=== PATIENT | female | born 1955 | race Caucasian/White ===

== ENCOUNTER 2017-06-28 19:51 | Emergency (ER) | payer OTHER, SELFPAY ==
[2017-06-28 19:52] VITALS: BP 158/92; PULSE 108; RESP 20; TEMP 36.6; O2SAT 96; BMI 34.0
--- NOTE | 2017-06-28 20:40 | US_ITS ---
STUDY: ABDOMINAL ULTRASOUND - RIGHT UPPER QUADRANT REASON FOR VISIT: Female, 62 years old. Right upper quadrant pain TECHNIQUE: Ultrasound evaluation of the right upper quadrant was performed with real-time and static spear-scale imaging. TECHNICAL QUALITY: Limited. Examination limited by bowel gas. Also the patient was not fasting. COMPARISON: CT scan 06/01/2016. FINDINGS: Liver: The liver measures 13 cm. There is normal echogenicity of the liver. The bile ducts are within normal limits. There is hepatic color flow. The direction of portal flow is hepatopetal. Several liver cysts are seen measuring as much as 1.6 cm. Gallbladder: There is a contracted gallbladder. The gallbladder wall measures 3 mm. There is a negative sonographic Weston's sign. There is no pericholecystic fluid. There are no gallstones. Common Bile Duct (C.B.D.): The common bile duct measures 6.4 mm. Pancreas: Normal size of the head, body of the pancreas. Tail of the pancreas is suboptimally seen. There is normal echogenicity of the pancreas. There is no demonstrated pancreatic mass or cyst. Right Kidney: Normal size of the right kidney. The right kidney measures 10.1 cm. Normal renal cortex. The right cortex measures 1.0 cm. There is no demonstrated renal mass or cyst. There is no right hydronephrosis. US/Gallbladder IMPRESSION: Evaluation of the gallbladder is completely suboptimal because the patient was not fasting. Liver cysts incidentally noted. Electronically Signed: Bennett Harrison MD at 22:58 EDT , Service support ,
--- NOTE | 2017-06-28 21:12 | ED.RN ---
PATIENT REFUSED MORPHINE AND ZOFRAN SHE ISN'T IN THAT MUCH PAIN, AND DOESN'T HAVE NAUSEA.
[2017-06-28] MEDS: 0.9% Normal Saline 1,000 ML 250 ML IV (21:13)
[2017-06-28 21:29] LABS: Absolute Lymphocyte Count 2.49 X10^3/ul (0.83-4.51); Basophil# 0.02 X10^3/uL; Basophil% 0.3 % (0-1); Eosinophil# 0.18 X10^3/uL; Eosinophils% 2.5 % (0-5); Hematocrit 37.4 % (37-47); Hemoglobin 12.6 g/dl (12.0-15.0); Lymphocyte # 2.49 X10^3/ul (4.0); Lymphocyte % 35.2 % (19-41); Mean Corp Hgb Conc 33.7 g/gl (32-36); Mean Corpuscular Hgb 30.3 pg (27.0-32.0); Mean Corpuscular Volume 89.9 fL (81-99); Mean Platelet Vol. 9.6 fl (6.2-12.0); Monocyte# 0.41 X10^3/uL; Monocyte% 5.8 % (0-10); Neutrophil # 3.97 X10^3/uL (2.7-7.7); Neutrophil % 56.1 % (47-70); Platelet Count 296 K/mm3 (150-450); RBC Distribution Width CV 12.9 % (11.6-14.6); RBC Distribution Width SD 41.8 fl (35.1-43.9); Red Blood Count 4.16 M/mm3 (4.2-5.4); White Blood Count 7.1 K/mm3 (4.4-11.0)
[2017-06-28 21:31] LABS: AST(SGOT) 22 U/L (15-37); Alanine Aminotransfer ALT/SGPT 32 U/L (13-56); Albumin, Serum 3.5 g/dL (3.2-5.0); Alkaline Phosphatase 104 U/L (45-117); Bilirubin, Direct 0.05 mg/dL (0.00-0.30); Globulin 3.1 g/dL (2.2-4.2); Lipase 290 U/L (73-393); Protein, Total 6.6 g/dL (6.4-8.2)
[2017-06-28 21:40] LABS: POSITIVE COUNT NO; POSITIVE DIFFERENTIAL NO; POSITIVE MORPHOLOGY NO
[2017-06-28 22:14] VITALS: BP 141/79; PULSE 93; RESP 18; O2SAT 96
--- NOTE | 2017-06-28 23:12 | ED.VISSUMM ---
- ER Visit Summary Date of Service: 06/28/17 Chief Complaint: Right upper quadrant abdominal pain for approximately the past 3 days History of Present Illness: The patient is a 62 F who presents with right upper quadrant abdominal pain. There is a significant family history of cholelithiasis. She states the pain is worse when she sitting. She localizes the pain to the right upper quadrant. There is no radiation to the back. She does combine of nausea without vomiting or diarrhea. She denies constipation. She denies fever, chills night sweats. She denies cough, shortness of breath or difficulty breathing. She states she last ate at 1330. Please read written note for complete detail Physical Examination: As I entered the room patient was sitting a chair completely dressed reading a book. When she informed me that her pain is right upper quadrant right told her she would have to get into a gown. Her nurse helped her. Vital signs remarkable for blood pressure 158/92. Vital signs are otherwise unremarkable. HEENT exam is unremarkable. Lungs are clear to auscultation with good move air bilaterally. Heart is regular without murmur, gallop or rub. Abdomen is soft with tenderness in the right upper quadrant with guarding and positive clinical Weston sign. Bowel sounds are diminished. There is no CVA tenderness noted. There is no rash to suggest herpes varicella-zoster. The remainder of exam is unremarkable. Please read written note. Test Results: Ultrasound was suboptimal because patient told attack that she had cake. She admits that she omitted telling me this. Unfortunately I was not made aware of this and the ultrasound was done and is suboptimal. CBC, hepatic and lipase are unremarkable. Emergency Department Course and Treatment: Because patient has pain right upper quadrant with a clinical Weston sign and a significant family history cholelithiasis CBC, hepatic, lipase and ultrasound of the right upper quadrant was ordered. Treatment Plan: Follow-up with primary care physician for outpatient ultrasound since ultrasound performed today is suboptimal Disposition: Discharged to home Impression: Right upper quadrant pain of unknown etiology This note was generated with [employer] dictation software. It may contain incorrect words, spelling, and punctuation that were not noted in review of the chart prior to signing ED Disposition - Plan for ED Patient: Disposition: Home or Assisted Living Chief Complaint: Abd Pain Instructions: ED Abdominal Pain Unkn Cause, ED Abdominal Pain Gallstone Poss Referrals: Autumn Kothari MD [Primary Care Provider] - 3-5 Days
[2017-06-28 23:20] VITALS: BP 155/92; PULSE 95; O2SAT 97
[2017-06-28 23:22] VITALS: BP 155/92; PULSE 94; O2SAT 96
== END 2017-06-28 23:22 | disposition home or self-care (01) ==
PROVIDERS: Emergency Provider Emergency Medicine; Family Provider Family Medicine; PCP Family Medicine
DX: R10.11 Right upper quadrant pain (principal); R11.0 Nausea; Z87.891 Personal history of nicotine dependence
CPT/HCPCS: 76705; 80076; 83690; 85025; 96360; 99283; J2405

== ENCOUNTER → 2017-07-09 07:57 | Outpatient (CLI) | payer OTHER, SELFPAY ==
--- NOTE | 2017-07-09 08:02 | US_ITS ---
STUDY: ULTRASOUND TRANSVAGINAL CLINICAL: Female, 62 years old. Bloating x6 months, perimenopausal TECHNIQUE: Transvaginal COMPARISON: None FINDINGS: Normal uterine size measuring 4.6 x 6.4 x 4.6 cm. At least 3 uterine fibroids are noted containing calcification. The largest 3 measure 3.5 x 3.1 x 3.1 cm, 1.2 x 1.3 x 1.5 cm, and 1.6 x 1.5 x 1.4 cm. Normal endometrial thickness measuring 4 mm. There are no endometrial masses, and there is no fluid in the endometrial cavity. Normal uterine cervix. Normal right ovary, measuring 3.0 x 2.6 x 1.7 cm. There are multiple follicles without a dominant cyst. Normal left ovary, measuring 3.3 x 1.9 x 1.3 cm. There are multiple follicles without a dominant cyst. There is no free fluid in the pelvis. Polycystic ovary disease: No. US/Pelvic (Non ) IMPRESSION: Multiple uterine fibroids containing calcification. The ovaries appear normal. There is no fluid in the cul-de-sac. Electronically Signed: Louie Perez MD at 18:13 EDT , Service support ,
--- NOTE | 2017-07-09 08:02 | US_ITS ---
STUDY: ULTRASOUND TRANSVAGINAL CLINICAL: Female, 62 years old. Bloating x6 months, perimenopausal TECHNIQUE: Transvaginal COMPARISON: None FINDINGS: Normal uterine size measuring 4.6 x 6.4 x 4.6 cm. At least 3 uterine fibroids are noted containing calcification. The largest 3 measure 3.5 x 3.1 x 3.1 cm, 1.2 x 1.3 x 1.5 cm, and 1.6 x 1.5 x 1.4 cm. Normal endometrial thickness measuring 4 mm. There are no endometrial masses, and there is no fluid in the endometrial cavity. Normal uterine cervix. Normal right ovary, measuring 3.0 x 2.6 x 1.7 cm. There are multiple follicles without a dominant cyst. Normal left ovary, measuring 3.3 x 1.9 x 1.3 cm. There are multiple follicles without a dominant cyst. There is no free fluid in the pelvis. Polycystic ovary disease: No. US/Transvaginal Non- IMPRESSION: Multiple uterine fibroids containing calcification. The ovaries appear normal. There is no fluid in the cul-de-sac. Electronically Signed: Louie Perez MD at 18:13 EDT , Service support ,
== END ==
PROVIDERS: Family Provider Family Medicine; PCP Family Medicine; Visit Provider Obstetrics & Gynecology
DX: R14.0 Abdominal distension (gaseous) (principal)
CPT/HCPCS: 76830; 76856; 93976

== ENCOUNTER → 2017-11-19 08:08 | Outpatient (CLI) | payer OTHER, SELFPAY ==
[2017-11-19 08:48] LABS: Hematocrit 40.2 % (37-47); Hemoglobin 13.8 g/dl (12.0-15.0); Mean Corp Hgb Conc 34.3 g/gl (32-36); Mean Corpuscular Hgb 30.4 pg (27.0-32.0); Mean Corpuscular Volume 88.5 fL (81-99); Mean Platelet Vol. 9.8 fl (6.2-12.0); Platelet Count 316 K/mm3 (150-450); RBC Distribution Width CV 12.7 % (11.6-14.6); RBC Distribution Width SD 40.6 fl (35.1-43.9); Red Blood Count 4.54 M/mm3 (4.2-5.4); White Blood Count 6.4 K/mm3 (4.4-11.0)
[2017-11-19 08:51] LABS: Scan Indicated on CBC? Y/N NO
[2017-11-19 08:59] LABS: ALB/GLOB Ratio 1.1 RATIO (0.9-2.4); AST(SGOT) 23 U/L (15-37); Alanine Aminotransfer ALT/SGPT 34 U/L (13-56); Albumin, Serum 3.8 g/dL (3.2-5.0); Alkaline Phosphatase 127 U/L (45-117); Amylase 63 U/L (25-115); Anion Gap 10 (5-15); BUN 11 mg/dL (7-18); BUN/Creat Ratio 11.9 RATIO (10-20); Calcium,Total 9.2 mg/dL (8.5-10.1); Chloride 107 mmol/L (98-107); Creatinine, Serum 0.92 mg/dL (0.55-1.02); EST Glomerular Filtration Rate 65 mL/min (>60); Est Glom Filt Rate - Afr Amer 78 mL/min (>60); Globulin 3.5 g/dL (2.2-4.2); Glucose 101 mg/dL (74-106); Lipase 224 U/L (73-393); Potassium 3.8 mmol/L (3.5-5.1); Protein, Total 7.3 g/dL (6.4-8.2); Sodium Level 143 mmol/L (136-145)
== END ==
PROVIDERS: Family Provider Family Medicine; PCP Family Medicine; Visit Provider Family Medicine
DX: R14.0 Abdominal distension (gaseous) (principal)
CPT/HCPCS: 36415; 80053; 82150; 83690; 85027

== ENCOUNTER → 2018-01-14 08:30 | Outpatient (CLI) | payer OTHER, SELFPAY ==
--- NOTE | 2018-01-14 08:35 | BI_ITS ---
MAMMOGRAPHY - BILATERAL SCREENING REASON FOR EXAM: Female, 62 years old. Routine annual screening examination. PERTINENT HISTORY: Aunt with breast cancer. TECHNIQUE: Digital bilateral breast jose (3D mammographic acquisition) in the CC and MLO projections. 2-D mediolateral oblique (MLO) and craniocaudad (CC) views of both breasts were obtained. CAD: Full Field Digital Mammography with Computer Added Detection was performed. COMPARISON: Comparison is made with prior study dated December 31, 2016 and December 06, 2015. FINDINGS: Breast Composition: There are scattered areas of fibroglandular density. There are no dominant masses or suspicious calcifications. No other significant abnormalities are identified. There has been no significant change since the prior study. BI/SCREENING MAMM (CAD), BILAT IMPRESSION: Stable bilateral screening mammogram. Yearly follow-up mammogram recommended. (A) ASSESSMENT CATEGORY: BIRADS Category 1: Negative. A letter regarding these results will be sent to the patient by the facility within 30 days. Approximately 10% of breast cancers are not detected by mammography. A normal mammogram should not delay biopsy of a clinically suspicious abnormality. [id number] Electronically Signed: Cooper Thomas MD at 10:02 EDT Tel [phone], Service support ,
== END ==
PROVIDERS: Family Provider Family Medicine; PCP Family Medicine; Referring Provider Nurse Practitioner Women's Health; Visit Provider Nurse Practitioner Women's Health
DX: Z12.31 Encounter for screening mammogram for malignant neoplasm of breast (principal)
CPT/HCPCS: 77063; 77067

== ENCOUNTER → 2018-02-27 12:28 | Outpatient (CLI) | payer MEDICARE, BC, SELFPAY ==
[2018-02-25 07:55] VITALS: BMI 33.3
--- NOTE | 2018-02-27 12:29 | NM_ITS ---
CLINICAL: 67-year-old female with reported history of abdominal pain. RADIONUCLIDE HEPATOBILIARY SCINTIGRAPHY COMPARISON: Abdominal ultrasound report 06/28/2017 FINDINGS: Following the intravenous administration of 5.0 mCi of 99m Tc Mebrofenin, hepatobiliary images reveal: 1. Relatively prompt and homogeneous radiopharmaceutical concentration is noted by a normal sized liver. No parenchymal defects are identified. 2. Gallbladder activity is identified at 60 minutes post radiopharmaceutical administration. 3. Small intestinal tract is observed at 30 minutes following tracer injection. 4. Washout of the radiopharmaceutical by the hepatic parenchyma appears qualitatively normal. The patient was administered a fatty meal (8 ounces BOOST-30 grams fat). The post fatty meal consumption gallbladder ejection fraction calculated at 23 minutes was noted to be 61.0 % (normal greater than 30%). MO/Hepatobilliary Img w/Pharm Int IMPRESSION: 1. NORMAL 99m Tc Mebrofenin hepatobiliary imaging examination with fatty meal ingestion. A. A gallbladder ejection fraction calculated to be greater than 30% following the administration of a consumed fatty meal makes the probability of functional hepatobiliary disease (gallbladder and/or sphincter of Oddi dyskinesia) and/or organic hepatobiliary disease (chronic acalculous cholecystitis and/or cystic duct syndrome) to be low. (Chelo and Andrew, J Nucl Med 43: 1603, 2002). Electronically Signed: Charles Garber DO at 23:19 EST Tel , Service support ,
--- OUTSIDE RECORDS SUMMARY | 2018-04-15 07:05 | XMS RPT_ITS ---
:1955 Author Organization [place] Support Name Relationship Address Phone R Unavailable Unavailable Unavailable SANGEETA WILLIAMSON Unavailable [address] + [place] [address] R Unavailable Unavailable Unavailable SANGEETA WILLIAMSON Unavailable [address] + [place] [address] R Unavailable Unavailable Unavailable SANGEETA WILLIAMSON Unavailable [address] + [place] [address] R Unavailable Unavailable Unavailable SANGEETA WILLIAMSON Unavailable [address] + [place] [address] R Unavailable Unavailable Unavailable SANGEETA WILLIAMSON Unavailable [address] + [place] [address] SANGEETA WILLIAMSON Unavailable Unavailable + SANGEETA WILLIAMSON Unavailable Unavailable + R Unavailable Unavailable Unavailable SANGEETA WILLIAMSON Unavailable [address] + [place] [address] R Unavailable Unavailable Unavailable SANGEETA WILLIAMSON Unavailable [address] + [place] [address] SANGEETA WILLIAMSON Unavailable Unavailable + SANGEETA WILLIAMSON Unavailable Unavailable + R Unavailable Unavailable Unavailable SANGEETA WILLIAMSON Unavailable [address] + [place] [address] Care Team Providers Name Role Phone AUTUMN KOTHARI Attending Unavailable TAYE, AUTUMN Primary Care Unavailable MARIA ISABEL Munguia Attending Unavailable TAYE, AUTUMN Primary Care Unavailable Aj Serna Attending Unavailable Sarai Munguia Referring Unavailable Aj Serna Attending Unavailable Aj Serna Referring Unavailable Sarai Munguia Primary Care Unavailable Taye, Autumn Primary Care Unavailable Case Melissa Attending Unavailable May Frausto Attending Unavailable Taye, Autumn Primary Care Unavailable Sarai Munguia Attending Unavailable Sarai Munguia Referring Unavailable Sarai Munguia Primary Care Unavailable Edwin Sernael Attending Unavailable Ezra, Sarai Referring Unavailable Kenna Figueroa Attending Unavailable Henry, Kenna Referring Unavailable Munguia, Sarai Primary Care Unavailable Hershey, Molly Attending Unavailable Munguia, Sarai Referring Unavailable PROBLEMS PROBLEMS DATE TYPE CONDITION / CODE ATTENDING STATUS SOURCE 02/25/2018 Unknown R10.11 - Right Aj Serna Active [place] [facility] R10.11(ICD-10) Repository 02/25/2018 Unknown R14.0 - Abdominal Aj Serna Active [facility] R14.0(ICD-10) Repository PROCEDURES PROCEDURES No Procedure Records FoundRESULTS RESULTS SURGERY VISIT REPORT Observed: 03/03/2018 Status: F Source: [place] 7:54 AM [facility] REPOSITORY [facility] [address] [place] [address]. [address] [place] [address] OFFICE VISIT Date of Service: 03/03/18 MR#: [id number] Acct: [id number] Name: AYAH WILLIAMSON Rep #: [id number] : 1955 Provider: Aj Serna MD Age/Sex: 63/F Location: [facility] Status: Signed Intake Vital Signs03/03/18 Body Mass Index (BMI) 33.3 Intake Visit Reasons: hida results Student Activities Director Required: No Is patient in pain?: No Allergies Penicillins [PCN] Adverse Reaction (Verified 03/03/18 07:29) Hives Medications lactobacillus combination no.8 3 billion cell capsule 3,000 mmu cells PO DAILY 02/25/18 [History Confirmed 03/03/18] vitamin B complex tablet 1 tab PO DAILY 02/25/18 [History Confirmed 03/03/18] PFSH Medical History Hemorrhoids (Acute) Acid reflux (Acute) Constipation (Acute) Abdominal pain (Acute) Surgical History Hx of colonoscopy (Acute) Hx of tonsillectomy (Acute) Family History Aunt Breast cancer Aunt Ovarian cancer Mother Colon cancer Sister Ovarian cancer Social History Smoking Status: Never smoker alcohol intake: never substance use type: does not use caffeine: Yes frequency: does not exercise seatbelt use: always do you feel safe at home: Yes HPI HPI HPI: AYAH WILLIAMSON, is a 63 F who presents to the office today to review her most recent HIDA scan. Patient has had numerous ultrasounds of her gallbladder which have all been negative showing no pericholecystic fluid no stones and no gallbladder wall thickening. In addition, bile duct is always measured normal. She has had some liver function tests in the past 1 of them showing that the alkaline phosphatase was elevated but others showing it to be normal. She has a known history of constipation and she has had a colonoscopy in the past which has been negative. She has never had an upper endoscopy. Patient states last night she ate pizza at 5:00 she was later awoken later in the evening with right upper quadrant abdominal pain and bloating but just has not gotten better. This is a typical pattern for her when she eats or drinks align several hours after that she will develop right upper quadrant abdominal pain and bloating. This is been going on for better than a year. Over the last several months is gotten significantly worse. The patient has never had an upper endoscopy nor has she had a HIDA scan with ejection fraction. Her HIDA scan with ejection fraction showed a gallbladder ejection fraction to be 61% the test itself did not induce any abdominal pain whatsoever. Patient states that she has noted some slight improvement by trying to decrease the amount of food that she has been in taking it any one time. She has had no diarrhea. Exam Const General: well developed, no acute distress, well hydrated Orientation: oriented to person, oriented to place, oriented to time [facility] Head: normocephalic, atraumatic Ears: external ears normal Mouth: moist mucous membranes Eyes Sclera: sclerae normal Pupils: normal by confrontation Neck Neck: no lymphadenopathy noted Neck mass: No Thyroid: symmetrical, thyroid normal Chest Chest palpation AND inspection: normal inspection of the chest Resp Effort AND Inspection: normal respiratory effort Auscultation: clear to auscultation bilaterally Percussion: percussion normal Cardio Rate: regular rate Rhythm: regular rhythm GI Palpation: soft, no masses, no hepatosplenomegaly, nontender Rectal Exam: other Other: Rectal exam deferred. Extrem General: no clubbing, cyanosis or edema, normal to inspection Assessment AND Plan Problems 1. Abdominal bloating R14.0 2. Abdominal pain, RUQ R10.11 Plan I have discussed the above with the patient. I have offered the patient esophagogastroduodenoscopy for evaluation. I have explained the risks/benefits of the procedure and described the procedure. I have discussed the risks with the patient, including but not limited to: infection, bleeding, perforation of the GI tract requiring emergency surgery, inability to complete the procedure, injury to any internal organs, complications of anesthesia, etc. - the patient understands and agrees to proceed. I have answered all the patient's questions to the patient's satisfaction and the patient has no further questions. The patient has been given instructions for the colon cleansing preparation. We will do a biopsy for H. pylori as well as a biopsy of her small bowel. Coding Level of Care Code Off vis,est,level 3 Diagnoses Abdominal bloating R14.0 Abdominal pain, RUQ R10.11 03/03/18 0754 <Electronically signed by Aj Serna MD> Date Aj Serna MD Cosigner Signature: Date (if applicable) CC: PHARMACY DATA ANALYST-C Sarai Munguia HEPATOBILLIARY IMG Observed: 02/27/2018 Status: F Source: [place] W/PHARM INT 12:29 PM [facility] REPOSITORY [facility] Imaging Services [address] [place] [address] Hepatobilliary Img w/Pharm Int MR#: [id number] Acct: [id number] Name: AYAH WILLIAMSON Rep #: [id number] : 1955 F 63 From: Charles Garber DO PCP: JESSICA Bangura Status: REG CLI Study: Hepatobilliary Img w/Pharm Int Date of Exam: 02/27/18 Exam# [id number] Ordering Dr: Aj Serna MD CLINICAL: 67-year-old female with reported history of abdominal pain. RADIONUCLIDE HEPATOBILIARY SCINTIGRAPHY COMPARISON: Abdominal ultrasound report 06/28/2017 FINDINGS: Following the intravenous administration of 5.0 mCi of 99m Tc Mebrofenin, hepatobiliary images reveal: 1. Relatively prompt and homogeneous radiopharmaceutical concentration is noted by a normal sized liver. No parenchymal defects are identified. 2. Gallbladder activity is identified at 60 minutes post radiopharmaceutical administration. 3. Small intestinal tract is observed at 30 minutes following tracer injection. 4. Washout of the radiopharmaceutical by the hepatic parenchyma appears qualitatively normal. The patient was administered a fatty meal (8 ounces BOOST- 30 grams fat). The post fatty meal consumption gallbladder ejection fraction calculated at 23 minutes was noted to be 61.0 % (normal greater than 30%). NM/Hepatobilliary Img w/Pharm Int IMPRESSION: 1. NORMAL 99m Tc Mebrofenin hepatobiliary imaging examination with fatty meal ingestion. A. A gallbladder ejection fraction calculated to be greater than 30% following the administration of a consumed fatty meal makes the probability of functional hepatobiliary disease (gallbladder and/or sphincter of Oddi dyskinesia) and/or organic hepatobiliary disease (chronic acalculous cholecystitis and/or cystic duct syndrome) to be low. (Chelo and Andrew, J Nucl Med 43: 1603, 2002). Electronically Signed: Charles Garber DO at 23:19 EST Tel , Service support , CC: JESSICA Munguia; Aj Serna MD Rough Carpenter: Signed SURGERY VISIT REPORT Observed: 02/25/2018 Status: F Source: [facility] 8:25 AM [facility] REPOSITORY [facility] [address] [place] [address] [address] [place], [place] [address] OFFICE VISIT Date of Service: 02/25/18 MR#: [id number] Acct: [id number] Name: TERIAYAH Zoila Rep #: [id number] : 1955 Provider: Aj Serna MD Age/Sex: 63/F Location: [facility] Status: Signed Intake Vital Signs02/25/18 Body Mass Index (BMI) 33.3 02/25/18 Height 5 ft 3 in 02/25/18 Weight: 188 lb Intake Visit Reasons: Abdominal pain AND bloating Student Activities Director Required: No Is patient in pain?: Yes (RUQ) Pain scale (1-10): 6 Allergies Penicillins [PCN] Adverse Reaction (Verified 02/25/18 07:54) Hives Medications lactobacillus combination no.8 3 billion cell capsule 3,000 mmu cells PO DAILY 02/25/18 [History Confirmed 02/25/18] vitamin B complex tablet 1 tab PO DAILY 02/25/18 [History Confirmed 02/25/18] PFSH Medical History Hemorrhoids (Acute) Acid reflux (Acute) Constipation (Acute) Abdominal pain (Acute) Surgical History Hx of colonoscopy (Acute) Hx of tonsillectomy (Acute) Family History Aunt Breast cancer Aunt Ovarian cancer Mother Colon cancer Sister Ovarian cancer Social History Smoking Status: Never smoker alcohol intake: never substance use type: does not use caffeine: Yes frequency: does not exercise seatbelt use: always do you feel safe at home: Yes HPI HPI HPI: AYAH WILLIAMSON, is a 63 F who presents to the office today for evaluation of abdominal bloating and right upper quadrant abdominal pain. Patient has had numerous ultrasounds of her gallbladder which have all been negative showing no pericholecystic fluid no stones and no gallbladder wall thickening. In addition, bile duct is always measured normal. She has had some liver function tests in the past 1 of them showing that the alkaline phosphatase was elevated but others showing it to be normal. She has a known history of constipation and she has had a colonoscopy in the past which has been negative. She has never had an upper endoscopy. Patient states last night she ate pizza at 5:00 she was later awoken later in the evening with right upper quadrant abdominal pain and bloating but just has not gotten better. This is a typical pattern for her when she eats or drinks align several hours after that she will develop right upper quadrant abdominal pain and bloating. This is been going on for better than a year. Over the last several months is gotten significantly worse. The patient has never had an upper endoscopy nor has she had a HIDA scan with ejection fraction ROS General General: No weight change, appetite, fatigue, colon cancer, breast cancer or weakness HEENT HEENT: No difficulty swallowing, eye injury, eye surgery, swollen glands or hoarseness Endo Endocrine: No thyroid disease, diabetes mellitus, thyroid cancer, Hair loss, heat intolerance or cold intolerance Skin Skin: No rash or changing moles Musc Musculoskeletal: Yes back problems Cardio Cardiovascular: No murmur, pacemaker, heart disease, atrial fibrillation, high blood pressure, heart attack, heart stent, palpitations, shortness of breat with exertion or chest pain Psych Psychiatric: No depression, anxiety or hearing voices Resp Respiratory: No shortness of breath, No sleep apnea, No cough, No COPD, No asthma, No emphysema, No wheezing Gastro Gastrointestinal: Yes abdominal pain, Yes constipation, Yes acid reflux, Yes hemorrhoids, No nausea or vomiting, No diarrhea, No blood in stool, No ulcers, No gallbladder problem, No black,tarry stools Jaskaran Hematologic: No blood thinners, No blood disorders, No bleeding, No anemia, No blood clots Neuro Neurologic: No system reviewed and no additional complaints, except as docu, No as per HPI, No abnormal walking, No abnormal hearing, No abnormal movements, No abnormal speech, No behavioral changes, No burning sensations, No confusion, No seizure-like activity, No unsteadiness, No dizziness, No localized weakness, No frequent falls, No headache(s), No lack of coordination, No loss of vision, No memory loss, No numbness, No other visual disturbances, No radiating pain, No restless legs, No sensory deficit, No fainting, No tingling, No tremor(s), No weakness, No other Exam Const General: well developed, no acute distress, well hydrated Orientation: oriented to person, oriented to place, oriented to time [facility] Head: normocephalic, atraumatic Ears: external ears normal Mouth: moist mucous membranes Eyes Sclera: sclerae normal Pupils: normal by confrontation Neck Neck: no lymphadenopathy noted Neck mass: No Thyroid: symmetrical, thyroid normal Chest Chest palpation AND inspection: normal inspection of the chest Resp Effort AND Inspection: normal respiratory effort Auscultation: clear to auscultation bilaterally Percussion: percussion normal Cardio Rate: regular rate Rhythm: regular rhythm Heart Sounds: no murmurs GI Inspection: obesity Palpation: soft, no masses, no hepatosplenomegaly, nontender Rectal Exam: other Other: Rectal exam deferred. Extrem General: no clubbing, cyanosis or edema, normal to inspection Assessment AND Plan Problems 1. Abdominal pain, RUQ R10.11 2. Abdominal bloating R14.0 Plan My plan is to obtain a HIDA scan with ejection fraction. If this is abnormal then we will proceed with a laparoscopic cholecystectomy. This is negative then I think we should probably proceed with an upper endoscopy with biopsies. Her symptomatology here is of biliary colic. She does not strike me as someone who has an ulcer. If her upper endoscopies are negative she may need to have a gastric emptying study as well as a upper GI and small bowel follow-through. 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 Activities Director Required: No Is patient in pain?: No Allergies Penicillins [PCN] Adverse Reaction (Verified 02/10/18 08:35) Hives Medications No Known/Unobtainable [No Known Home Medications] 06/01/16 [History Confirmed 02/10/18] Is last menstrual period known: No Post menopausal: No Patient : No : No PFSH Family History Aunt Breast cancer Aunt Ovarian cancer Mother Colon cancer Sister Ovarian cancer Social History Smoking Status: Never smoker alcohol intake: never substance use type: does not use seatbelt use: always do you feel safe at home: Yes Pregancy History 2 Elective abortions Hx Para 2 Spontaneous abortions Past Pregnancies Del. DatName GA/WeeksOutcome [facility] LocaProviderFOB e ht en tn Unknown Sangeeta 1970 Unknown Sabino 1970 ease at HPI Encounter for routine gynecological examination: Details: AYAH WILLIAMSON is a 63 year old who presents for annual exam. Denies concerns. Last PAP: 2016 History of abnormal PAP: no Last mammogram: 12/2017 History of abnormal mammogram: no Colon cancer screenin-repeat in 4 years. She is aware Female Reproductive History Questions: Metorrhagia: No, Sexually active: No, Dyspareunia: No, PCB: No ROS Const Constitutional: Denies fatigue, weight gain or weight loss Cardio Card: Denies chest pain Resp Resp: Denies cough or shortness of breath with activity GI GI: Denies abdominal pain, constipation, change in stools, vomiting or bloating : Reports as per HPI; denies urinary frequency, pelvic pain, urinary urgency, vaginal discharge, vaginal itching, urinary incontinence or difficulty urinating Exam Const General: cooperative, healthy appearing, no acute distress, well developed Orientation: alert, oriented to person, oriented to place HENHI Head: normal to inspection Neck Neck: normal visual inspection Thyroid: thyroid normal Lymphatic: no lymphadenopathy noted Chest Breast inspection: normal inspection of the breasts, normal inspection of the axillae Breast palpation: normal palpation of the breasts, normal palpation of the axillae, no axillary lymphadenopathy Resp Effort AND Inspection: normal respiratory effort GI Palpation: soft, nontender, no masses Rectal Exam: deferred External Female Exam: normal external appearance, normal appearance of the urethra Urethra: normal appearance of the urethra, normal palpation Speculum Exam - Vagina: normal appearance of the vagina, normal vaginal discharge Speculum Exam - Cervix: normal appearance of the cervix Bimanual Exam- Vagina AND Uterus: normal bimanual exam, uterine size normal, uterine shape normal, uterus non-tender Bimanual Exam- Adnexa, other: normal adnexae, no adnexal masses, adnexae non-tender, pelvic support normal Pelvic Support: normal Neuro General: alert, oriented x3 Psych Affect: normal affect Assessment AND Plan 1. Encounter for gynecological examination without abnormal finding Z01.419 Plan Completed breast and pelvic exam Reviewed diet and exercise Pap 2017 Mammogram 2017 Colonoscopy 2014. Repeat in 2019 and given information RTO 1 year, prn with problems Kenna Figueroa CNP Coding Level of Care Code Pelvic/Breast Diagnoses Encounter for gynecological examination without abnormal finding Z01.419 Gynecological examination findings: abnormal findings ABSENT 02/10/18 0911 <Electronically signed by Kenna LOPEZ> Date Kenna LOPEZ Cosigner Signature: Date (if applicable) CC: SCREENING MAMM (CAD), Observed: 01/14/2018 Status: F Source: [place] 8:35 AM [facility] REPOSITORY [facility] Imaging Services [address] [place] [address] SCREENING MAMM (CAD), BILAT MR#: [id number] Acct: [id number] Name: AYAH WILLIAMSON Rep #: [id number] : 1955 F 62 From: Cooper Thomas MD PCP: JESSICA Bangura Status: REG CLI Study: SCREENING MAMM (CAD), BILAT Date of Exam: 01/14/18 Exam# [id number] Ordering Dr: Kenna Figueroa MAMMOGRAPHY - BILATERAL SCREENING REASON FOR EXAM: Female, 62 years old. Routine annual screening examination. PERTINENT HISTORY: Aunt with breast cancer. TECHNIQUE: Digital bilateral breast jose (3D mammographic acquisition) in the CC and MLO projections. 2-D mediolateral oblique (MLO) and craniocaudad (CC) views of both breasts were obtained. CAD: Full Field Digital Mammography with Computer Added Detection was performed. COMPARISON: Comparison is made with prior study dated December 31, 2016 and December 06, 2015. FINDINGS: Breast Composition: There are scattered areas of fibroglandular density. There are no dominant masses or suspicious calcifications. No other significant abnormalities are identified. There has been no significant change since the prior study. BI/SCREENING MAMM (CAD), BILAT IMPRESSION: Stable bilateral screening mammogram. Yearly follow-up mammogram recommended. (A) ASSESSMENT CATEGORY: BIRADS Category 1: Negative. A letter regarding these results will be sent to the patient by the facility within 30 days. Approximately 10% of breast cancers are not detected by mammography. A normal mammogram should not delay biopsy of a clinically suspicious abnormality. [id number] Electronically Signed: Cooper Thomas MD at 10:02 EDT Tel [phone], Service support , CC: GAEL Figueroa; JESSICA Munguia Rough Carpenter: Signed US ABDOMEN COMPLETE Observed: 11/25/2017 Status: F Source: [facility] 8:30 AM [facility] Ultrasound abdomen complete, 11/25/2017. CLINICAL INFORMATION: Abdominal bloating. COMPARISON: Ultrasound abdomen Limited 07/01/2017, CT abdomen 05/11/2015 Liver is 13.2 cm length and there are multiple hepatic cysts as seen on previous studies. LEFT lobe septate cyst or group of cysts measures 18 x 13 x 18 mm. RIGHT lobe cyst measures 18 x 19 x 20 mm. Add itional 10 x 8 x 8 mm liver cyst is noted. There is no intrahepatic biliary dilatation. Common duct izzy hepatis 4 mm. Gallbladder is adequately distended and there are no mobile shadowing stones or focal gallbladder wall abnormalities. Pancreas is felt to be normal. Spleen measures 8.8 x 3.3 x 2.8 cm and is homogeneous. RIGHT and LEFT kidneys measure 10.1 x 4.4 x 4.2 and 9.7 x 4.5 x 4.1 cm. Suspect 7 mm LEFT renal cyst. Abdominal aorta and IVC are normal caliber. No ascites. IMPRESSION: Stable hepatic cysts, felt to be benign. No additional acute abnormality. Interpreted By: Nacho Hughes MD Preliminary Report By: Nacho Hughes MD Electronically Signed By: Nacho Hughes MD Dictated Date: 11/25/2017 9:25:49 AM Prelim Date: 11/25/2017 9:25:49 AM Sign Date: 11/25/2017 9:29:50 AM CBC-COMPLETE BLOOD CNT Collected: 11/19/2017 Status: F Source: [place] NO DIFF 8:12 AM [facility] REPOSITORY TYPE CODE TESTS RESULT OUT OF RANGE REFERENCE UNITS LAB L100.1000 4.4-11.0 K/mm3 Normal WBC 6.4 LAB L100.1200 4.2-5.4 M/mm3 Normal RBC 4.54 LAB L100.1300 12.0-15.0 g/dl Normal HGB 13.8 LAB L100.1400 37-47 % Normal HCT 40.2 LAB L100.1500 81-99 fL Normal MCV 88.5 LAB L100.1600 27.0-32.0 pg Normal MCH 30.4 LAB L100.1700 32-36 g/gl Normal MCHC 34.3 LAB L100.1810 11.6-14.6 % Normal RDW CV 12.7 LAB L100.1820 35.1-43.9 fl Normal RDW SD 40.6 LAB L100.1900 150-450 K/mm3 Normal PLT 316 LAB L100.2000 6.2-12.0 fl Normal MPV 9.8 Performed By: #### L100.0500 #### [facility] [place], [address] COMPREHENSIVE METABOLIC Collected: 11/19/2017 Status: F Source: [place] [facility] 8:12 AM [facility] REPOSITORY TYPE CODE TESTS RESULT OUT OF RANGE REFERENCE UNITS LAB L501.0100 74-106 mg/dL Normal GLU 101 Result Comment: Fasting Glucose result from 100 to 125 mg/dL suggests IMPAIRED HOMEOSTASIS per A.D.A. criteria. Please note revised GLUCOSE reference range effective 2017. LAB L501.1000 7-18 mg/dL Normal BUN 11 LAB L501.1100 0.55-1.02 mg/dL Normal CREAT,SERUM 0.92 Result Comment: The validity of the calculated GFR AND GFRAA in patients over 70 years has not been determined. Clinical correlation is essential. LAB L501.1110 >60 mL/min Normal EST GFR 65 Result Comment: Non- GFR Calc LAB L501.1115 >60 mL/min Normal EST GFR - AA 78 Result Comment: GFR Calc LAB L501.1300 10-20 RATIO Normal BUN/CRE 11.9 LAB L501.1500 6.4-8.2 g/dL T Normal PROT 7.3 LAB L501.1800 3.2-5.0 g/dL Normal ALB 3.8 LAB L501.1950 2.2-4.2 g/dL Normal GLOB 3.5 LAB L501.2000 0.9-2.4 RATIO Normal A/G 1.1 LAB L501.2200 8.5-10.1 mg/dL CA Normal 9.2 LAB L501.4100 15-37 U/L Normal AST 23 LAB L501.4305 45-117 U/L High ALK P 127 LAB L501.4405 13-56 U/L Normal ALT 34 LAB L501.4600 0.20-1.00 mg/dL T Normal BILI 0.40 LAB L501.5300 136-145 mmol/L NA Normal 143 LAB L501.5600 3.5-5.1 mmol/L K Normal 3.8 LAB L501.5900 98-107 mmol/L CL Normal 107 LAB L501.6100 21.0-32.0 mmol/L Normal CO2 26.0 LAB L501.6200 5-15 Normal GAP 10 Performed By: #### L500.4050, L501.2400, L501.2450 #### [facility] Laboratory [address] [place], [address] AMYLASE Collected: 11/19/2017 Status: F Source: [facility] 8:12 AM [facility] REPOSITORY TYPE CODE TESTS RESULT OUT OF RANGE REFERENCE UNITS LAB L501.2400 25-115 U/L Normal COLLEEN 63 Performed By: #### L500.4050, L501.2400, L501.2450 #### [facility] [address] [place], [address] LIPASE Collected: 11/19/2017 Status: F Source: [facility] 8:12 AM [facility] REPOSITORY TYPE CODE TESTS RESULT OUT OF RANGE REFERENCE UNITS LAB L501.2450 73-393 U/L Normal LIPASE 224 Performed By: #### L500.4050, L501.2400, L501.2450 #### [facility] [address] [place], [address] TRANSVAGINAL Observed: 07/09/2017 Status: F Source: [facility] NON- 8:02 AM [facility] REPOSITORY [facility] Imaging Services [address] [place] [address] Transvaginal Non- MR#: [id number] Acct: [id number] Name: AYAH WILLIAMSON Rep #: [id number] : 1955 F 62 From: Louie Perez MD PCP: Autumn Kothari MD Status: REG CLI Study: Transvaginal Non- Date of Exam: 07/09/17 Exam# [id number] Ordering Dr: May Frausto MD STUDY: ULTRASOUND TRANSVAGINAL CLINICAL: Female, 62 years old. Bloating x6 months, perimenopausal TECHNIQUE: Transvaginal COMPARISON: None FINDINGS: Normal uterine size measuring 4.6 x 6.4 x 4.6 cm. At least 3 uterine fibroids are noted containing calcification. The largest 3 measure 3.5 x 3.1 x 3.1 cm, 1.2 x 1.3 x 1.5 cm, and 1.6 x 1.5 x 1.4 cm. Normal endometrial thickness measuring 4 mm. There are no endometrial masses, and there is no fluid in the endometrial cavity. Normal uterine cervix. Normal right ovary, measuring 3.0 x 2.6 x 1.7 cm. There are multiple follicles without a dominant cyst. Normal left ovary, measuring 3.3 x 1.9 x 1.3 cm. There are multiple follicles without a dominant cyst. There is no free fluid in the pelvis. Polycystic ovary disease: No. US/Transvaginal Non- IMPRESSION: Multiple uterine fibroids containing calcification. The ovaries appear normal. There is no fluid in the cul-de-sac. Electronically Signed: Louie Perez MD at 18:13 EDT , Service support , CC: Autumn Kothari MD; May Frausto MD Rough Carpenter: Signed PELVIC (NON ) Observed: 07/09/2017 Status: F Source: [facility] 8:02 AM [facility] REPOSITORY [facility] Imaging Services [address] [place] [address] Pelvic (Non ) MR#: [id number] Acct: [id number] Name: AYAH WILLIAMSON Rep #: [id number] : 1955 F 62 From: Louie Perez MD PCP: Autumn Kothari MD Status: REG CLI Study: Pelvic (Non ) Date of Exam: 07/09/17 Exam# [id number] Ordering Dr: May Frausto MD STUDY: ULTRASOUND TRANSVAGINAL CLINICAL: Female, 62 years old. Bloating x6 months, perimenopausal TECHNIQUE: Transvaginal COMPARISON: None FINDINGS: Normal uterine size measuring 4.6 x 6.4 x 4.6 cm. At least 3 uterine fibroids are noted containing calcification. The largest 3 measure 3.5 x 3.1 x 3.1 cm, 1.2 x 1.3 x 1.5 cm, and 1.6 x 1.5 x 1.4 cm. Normal endometrial thickness measuring 4 mm. There are no endometrial masses, and there is no fluid in the endometrial cavity. Normal uterine cervix. Normal right ovary, measuring 3.0 x 2.6 x 1.7 cm. There are multiple follicles without a dominant cyst. Normal left ovary, measuring 3.3 x 1.9 x 1.3 cm. There are multiple follicles without a dominant cyst. There is no free fluid in the pelvis. Polycystic ovary disease: No. US/Pelvic (Non ) IMPRESSION: Multiple uterine fibroids containing calcification. The ovaries appear normal. There is no fluid in the cul-de-sac. Electronically Signed: Louie Perez MD at 18:13 EDT , Service support , CC: Autumn Kothari MD; May Frausto MD Rough Carpenter: Signed US ABDOMEN LIMITED Observed: 07/01/2017 Status: F Source: [facility] 8:30 AM [facility] REPOSITORY ORIGINAL US ABDOMEN LIMITED: Ultrasound of the RIGHT upper quadrant CLINICAL STATEMENT: Right upper quadrant pain COMPARISON: CT abdomen/pelvis 05/11/2015 FINDINGS: The liver is normal in size and echogenicity. There are two mildly complex cysts in the right and left lobes, correlating with hepatic cysts on prior CT, measure 1.7 x 1.6 x 1.4 cm and 1 x 0.9 x 1.2 cm respectively. There is no intra or extrahepatic bile duct dilatation. The common duct is 6 mm at the izzy hepatis. The gallbladder is normally distended without calculus, wall thickening or tenderness. The visualized pancreas is normal in size and echogenicity. No ascites is seen in the Joshi's pouch. The right k kris measures 9.4 cm in length without pelvocaliectasis. IMPRESSION: No significant abnormality. I have personally reviewed the images of this examination and agree with the resident's findings and interpretation. Interpreted By: Nacho Hughes MD Preliminary Report By: Mahendra Hernandez DO Electronically Signed By: Nacho Hughes MD Dictated Date: 07/01/2017 10:05:26 AM Prelim Date: 07/01/2017 11:46:13 AM Sign Date: 07/01/2017 12:37:03 PM EMERGENCY DEPARTMENT Observed: 06/28/2017 Status: F Source: [facility] 11:16 PM [facility] REPOSITORY [facility] Medical Records Department [address] [place] [address] Emergency Department Summary 06/28/17 2312 MR#: [id number] Acct: [id number] Name: AYAH WILLIAMSON Rep #: [id number] : 1955 62 From: Case Melissa MD PCP: Autumn Kothari MD Status: REG ER - ER Visit Summary Date of Service: 06/28/17 Chief Complaint: Right upper quadrant abdominal pain for approximately the past 3 days History of Present Illness: The patient is a 62 F who presents with right upper quadrant abdominal pain. There is a significant family history of cholelithiasis. She states the pain is worse when she sitting. She localizes the pain to the right upper quadrant. There is no radiation to the back. She does combine of nausea without vomiting or diarrhea. She denies constipation. She denies fever, chills night sweats. She denies cough, shortness of breath or difficulty breathing. She states she last ate at 1330. Please read written note for complete detail Physical Examination: As I entered the room patient was sitting a chair completely dressed reading a book. When she informed me that her pain is right upper quadrant right told her she would have to get into a gown. Her nurse helped her. Vital signs remarkable for blood pressure 158/92. Vital signs are otherwise unremarkable. HEENT exam is unremarkable. Lungs are clear to auscultation with good move air bilaterally. Heart is regular without murmur, gallop or rub. Abdomen is soft with tenderness in the right upper quadrant with guarding and positive clinical Weston sign. Bowel sounds are diminished. There is no CVA tenderness noted. There is no rash to suggest herpes varicella-zoster. The remainder of exam is unremarkable. Please read written note. Test Results: Ultrasound was suboptimal because patient told attack that she had cake. She admits that she omitted telling me this. Unfortunately I was not made aware of this and the ultrasound was done and is suboptimal. CBC, hepatic and lipase are unremarkable. Emergency Department Course and Treatment: Because patient has pain right upper quadrant with a clinical Weston sign and a significant family history cholelithiasis CBC, hepatic, lipase and ultrasound of the right upper quadrant was ordered. Treatment Plan: Follow-up with primary care physician for outpatient ultrasound since ultrasound performed today is suboptimal Disposition: Discharged to home Impression: Right upper quadrant pain of unknown etiology This note was generated with ImageTag dictation software. It may contain incorrect words, spelling, and punctuation that were not noted in review of the chart prior to signing ED Disposition - Plan for ED Patient: Disposition: Home or Assisted Living Chief Complaint: Abd Pain Instructions: ED Abdominal Pain Unkn Cause, ED Abdominal Pain Gallstone Poss Referrals: Autumn Kothari MD [Primary Care Provider] - 3-5 Days What to do if you have Problems For any increased pain, shortness of breath, bleeding, nausea or vomiting, chest pain, or any unexpected problems, contact your Primary Care Provider. Call [facility] ([phone]) or report to the closest Emergency Room. Call 911 if necessary. 06/28/17 2066 <Electronically signed by Case Melissa MD> Date Case Melissa MD Cosigner Signature (If Indicated): Date CC: Autumn Kothari MD LIVER PROFILE Collected: 06/28/2017 Status: F Source: [facility] 9:06 PM [facility] REPOSITORY TYPE CODE TESTS RESULT OUT OF RANGE REFERENCE UNITS LAB L501.1500 6.4-8.2 g/dL Normal T PROT 6.6 LAB L501.1800 3.2-5.0 g/dL Normal ALB 3.5 LAB L501.1950 2.2-4.2 g/dL Normal GLOB 3.1 LAB L501.4100 15-37 U/L Normal AST 22 LAB L501.4305 45-117 U/L Normal ALK P 104 LAB L501.4405 13-56 U/L Normal ALT 32 LAB L501.4600 0.20-1.00 mg/dL Normal T BILI 0.20 LAB L501.4700 0.00-0.30 mg/dL Normal D BILI 0.05 Performed By: #### L500.3400, L501.2450 #### [facility] [address], [place], [address] LIPASE Collected: 06/28/2017 Status: F Source: [facility] 9:06 PM [facility] REPOSITORY TYPE CODE TESTS RESULT OUT OF RANGE REFERENCE UNITS LAB L501.2450 73-393 U/L Normal LIPASE 290 Performed By: #### L500.3400, L501.2450 #### [facility] [address] [place], [address] CBC W/DIFF, AUTOMATED Collected: 06/28/2017 Status: F Source: [facility] 9:06 [facility] REPOSITORY TYPE CODE TESTS RESULT OUT OF RANGE REFERENCE UNITS LAB L100.1000 4.4-11.0 K/mm3 Normal WBC 7.1 LAB L100.1200 4.2-5.4 M/mm3 Low RBC 4.16 LAB L100.1300 12.0-15.0 g/dl Normal HGB 12.6 LAB L100.1400 37-47 % Normal HCT 37.4 LAB L100.1500 81-99 fL Normal MCV 89.9 LAB L100.1600 27.0-32.0 pg Normal MCH 30.3 LAB L100.1700 32-36 g/gl Normal MCHC 33.7 LAB L100.1810 11.6-14.6 % Normal RDW CV 12.9 LAB L100.1820 35.1-43.9 fl Normal RDW SD 41.8 LAB L100.1900 150-450 K/mm3 Normal PLT 296 LAB L100.2000 6.2-12.0 fl Normal MPV 9.6 LAB L100.2100 47-70 % Normal NEUT% 56.1 LAB L100.2200 19-41 % Normal LY% 35.2 LAB L100.2300 0-10 % Normal MONO% 5.8 LAB L100.2400 0-5 % Normal EO% 2.5 LAB L100.2500 0-1 % Normal BASO% 0.3 LAB L100.2550 0.0-0.9 % Normal IM GRAN % 0.100 Result Comment: IG% - Immature Granulocytes (promyelocytes, myelocytes and metamyelocytes) > 1% indicates that a LEFT SHIFT is Present. LAB L100.2620 2.0-7.7 X10 3/uL Normal Absolute Neut 4.0 LAB L100.2720 0.83-4.51 X10 3/ul Normal Absolute Lymph 2.49 Performed By: #### L100.0100 #### [facility] [address] [facility] [place], [address] GALLBLADDER Observed: 06/28/2017 Status: F Source: [facility] 8:41 PM [facility] REPOSITORY [facility] Imaging Services [address] [place] [address] Gallbladder MR#: [id number] Acct: [id number] Name: AYAH WILLIAMSON Rep #: [id number] : 1955 F 62 From: Bennett Harrison MD PCP: Taye MERAZ,[facility] Status: REG ER Study: Gallbladder Date of Exam: 06/28/17 Exam# [id number] Ordering Dr: Case Melissa MD STUDY: ABDOMINAL ULTRASOUND - RIGHT UPPER QUADRANT REASON FOR VISIT: Female, 62 years old. Right upper quadrant pain TECHNIQUE: Ultrasound evaluation of the right upper quadrant was performed with real-time and static spear-scale imaging. TECHNICAL QUALITY: Limited. Examination limited by bowel gas. Also the patient was not fasting. COMPARISON: CT scan 06/01/2016. FINDINGS: Liver: The liver measures 13 cm. There is normal echogenicity of the liver. The bile ducts are within normal limits. There is hepatic color flow. The direction of portal flow is hepatopetal. Several liver cysts are seen measuring as much as 1.6 cm. Gallbladder: There is a contracted gallbladder. The gallbladder wall measures 3 mm. There is a negative sonographic Weston's sign. There is no pericholecystic fluid. There are no gallstones. Common Bile Duct (C.B.D.): The common bile duct measures 6.4 mm. Pancreas: Normal size of the head, body of the pancreas. Tail of the pancreas is suboptimally seen. There is normal echogenicity of the pancreas. There is no demonstrated pancreatic mass or cyst. Right Kidney: Normal size of the right kidney. The right kidney measures 10.1 cm. Normal renal cortex. The right cortex measures 1.0 cm. There is no demonstrated renal mass or cyst. There is no right hydronephrosis. US/Gallbladder IMPRESSION: Evaluation of the gallbladder is completely suboptimal because the patient was not fasting. Liver cysts incidentally noted. Electronically Signed: Bennett Harrison MD at 22:58 EDT , Service support , CC: Autumn Kothari MD; Case Melissa MD Rough Carpenter: Signed ALLERGIES ALLERGIES DATE TYPE / CODE NAME / CODE REACTION SEVERITY SOURCE 03/03/2018 Drug Penicillins/ Hives Unknown [facility] Allergy/4160 [id number]([facility] 67642(SNOMED XNORM) Repository CT) ENCOUNTERS ENCOUNTERS ADMIT/DISCHARGE ACCOUNT NUMBER ADMITTING ENCOUNTER LOCATION SOURCE CLASS 03/03/2018/03/03/20 [id number] Ambulatory BMSBuilding: [place] 18 BMS.[facility] Repository 02/27/2018 [id number] Ambulatory [facility] Hospital ding:NM Repository 02/25/2018/02/26/20 [id number] Ambulatory BMSBuilding: [place] 18 BMS.[facility] Repository 02/10/2018/02/11/20 [id number] Ambulatory BMSBuilding: [place] 18 BMS.[facility] Hospital Repository 01/14/[id number] [facility] ding:OPBI Repository 11/25/2017/11/26/19 [id number] Ambulatory [address] ding:[facility] Repository 11/19/[id number] [facility] ding:LAB Repository 07/09/[id number] [facility] ding:OPUS Repository 07/01/2017/07/02/19 [id number] Ambulatory [address] ding:[facility] Repository 06/28/2017/06/29/19 [id number] Emergency [address] ding:ED Repository PAYERS PAYERS ENCOUNTER GUARANTOR PAYER SUBSCRIBER SOURCE 03/03/2018 AYAH L Primary AYAH L [place] [id number] SADDLE Insurance:MEDICARE YOUNGDOB: [facility] A [facility] [id number] Number: Repository [id number]: 330 [id number] [phone] () Date:2018-02-25 03/03/2018 Secondary AYAH L [place] Insurance:ALLISON WILLIAMSONDOB: [facility] [id number] Hospital Number: Repository [id number] Date:6968-28-50RK [facility] [id number], [place] [address]RJ: 03/03/2018 Tertiary NOT GIVENUNK [place] Insurance:SELF PAY [facility] Number: Effective Repository Date:2018-03-03 02/27/2018 AYAH L Primary AYAH L [place] [id number] SADDLE Insurance:MEDICARE YOUNGDOB: [facility] PART A [facility] [id number] Number: Repository [id number]: 330 [id number] [phone] (HP) Date:2018-02-25 02/27/2018 Secondary AYAH L [place] Insurance:ALLISON DUMASB: [facility] [id number] Hospital Number: Repository [id number] Date:2274-60-38MD [address] [place] [address]HZ: 02/27/2018 Tertiary NOT GIVENUNK [place] Insurance:SELF PAY [facility] Number: Effective Repository Date:2018-02-25 02/25/2018 AYAH L Primary AYAH L [place] [id number] SADDLE Insurance:MEDICARE YOUNGDOB: [facility] PART A [facility] [id number], [place] Number: Repository [id number]: 330 [id number] [phone] () Date:2018-02-17 02/25/2018 Secondary AYAH L [place] Insurance:ALLISON DUMASB: [facility] [id number] Hospital Number: Repository [id number] Date:6385-93-77XH [id number] [place] [address]RX: 02/25/2018 Tertiary NOT GIVENUNK [place] Insurance:SELF PAY [facility] Number: Effective Repository Date:2018-02-25 02/10/2018 AYAH L Primary AYAH L [place] [id number] SADDLE Insurance:MEDICARE YOUNGDOB: [facility] PART A [facility] [id number] Number: Repository [id number]: 330 [id number] [phone] () Date:2018-01-12 02/10/2018 Secondary AYAH L [place] Insurance:ALLISON DUMASB: [facility] [id number] Hospital Number: Repository [id number] Date:6562-23-61CZ [address]VBUKQK[address], [place] [address]DZ: 02/10/2018 Tertiary NOT GIVENUNK [place] Insurance:SELF PAY [facility] Number: Effective Repository Date:2018-01-12 01/14/2018 YAAH L Primary AYAH L [place] [id number] SADDLE Insurance:AULTCAREPol YOUNGDOB: [facility] icy Number: [id number], [place] [id number] Repository [address]Duh: [phone]) e Date:5810-62-99ZV [phone] () [address] [place] [address]SE: 01/14/2018 Secondary NOT GIVENUNK [place] Insurance:SELF PAY [facility] Number: Effective Repository Date:2017-12-15 11/25/2017 AYAH L Primary AYAH L [facility] YOUNGDOB: Insurance:AULTCARE YOUNGDOB: [facility] [id number] Number: [id number] Repository [place] [id number] [address] [place], [place] e Date:2017-11-20 - [place], [place] [address]Szp: [phone] [id number]: Name:[facility] [id number] ()Tel: [phone], [place] () () [address]OR: () [phone] 11/19/2017 AYAH L Primary AYAH L [place] [id number] SADDLE Insurance:AULTCAREPol YOUNGDOB: [facility] icy Number: [id number], [place] [id number] Repository [address]Ckm: (534) e Date:7928-04-05ZL [phone] () [address] [place] [address]FU: 11/19/2017 Secondary NOT GIVENUNK [place] Insurance:SELF PAY [facility] Number: Effective Repository Date:2017-11-19 07/09/2017 AYAH L Primary AYAH L [place] [id number] SADDLE Insurance:AULTCAREPol YOUNGDOB: [facility] icy Number: [id number] [facility], [id number] [place]ository [place] [address]Bdh: e Date:9339-52-72NE [address] [place] [address] (HP) [phone]: 07/09/2017 Secondary AYAH L [place] Insurance:[facility] PACKAGE YOUNGDOB: [facility] PLANPolicy Number: [id number] Hospital [id number] Repository Date:2017-07-04 07/09/2017 Tertiary NOT GIVENUNK [place] Insurance:SELF PAY [facility] Number: Effective Repository Date:2017-07-04 07/01/2017 AYAH L Primary AYAH L [facility] YOUNGDOB: Insurance:AULTCARE YOUNGDOB: [facility] [id number] A69Piowde Number: [id number] Repository [place] [id number] [address] [place] [address] e Date:2017-06-30 - [place], [place] [address]Mti: [phone] [id number]: Name: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
== END ==
PROVIDERS: Family Provider Family Medicine; PCP Family Medicine; Referring Provider Surgery; Visit Provider Surgery
DX: R10.11 Right upper quadrant pain (principal)
CPT/HCPCS: 78227; A9537

== ENCOUNTER → 2018-11-18 | Outpatient (CLI) | payer MEDICARE, BC, SELFPAY ==
[2018-11-17 15:21] VITALS: BMI 33.3
== END | disposition home or self-care (01) ==
PROVIDERS: Family Provider Internal Medicine; PCP Internal Medicine; Referring Provider Physician Assistant; Visit Provider Physician Assistant
DX: R19.7 Diarrhea, unspecified (principal)
CPT/HCPCS: 83630; 87177; 87209; 87493

== ENCOUNTER → 2018-12-10 10:15 | Outpatient (CLI) | payer MEDICARE, BC, SELFPAY ==
[2018-11-17 15:21] VITALS: BMI 33.3
== END ==
PROVIDERS: Family Provider Family Medicine; PCP Family Medicine; Referring Provider Family Medicine; Visit Provider Surgery
DX: Z00.00 Encounter for general adult medical examination without abnormal findings (principal)

== ENCOUNTER → 2019-01-19 08:00 | Outpatient (CLI) | payer MEDICARE, BC, SELFPAY ==
[2018-11-17 15:21] VITALS: BMI 33.3
--- NOTE | 2019-01-19 08:02 | BI_ITS ---
MAMMOGRAPHY - BILATERAL SCREENING REASON FOR EXAM: Female, 63 years old. Routine annual screening examination. PERTINENT HISTORY: Aunts with breast cancer. TECHNIQUE: Digital bilateral breast khari (3D mammographic acquisition) in the CC and MLO projections. 2-D mediolateral oblique (MLO) and craniocaudad (CC) views of both breasts were obtained. CAD: Full Field Digital Mammography with Computer Added Detection was performed. COMPARISON: Comparison is made with prior study dated January 14, 2018 and December 31, 2016. FINDINGS: Breast Composition: There are scattered areas of fibroglandular density. There are no dominant masses or suspicious calcifications. Stable small benign-appearing bilateral axillary lymph nodes. No other significant abnormalities are identified. There has been no significant change since the prior study. BI/SCREEN MAMM (CAD) W/KHARI BILAT IMPRESSION: Stable bilateral screening mammogram. Yearly follow-up mammogram recommended. (A) ASSESSMENT CATEGORY: BIRADS Category 2: Benign. A letter regarding these results will be sent to the patient by the facility within 30 days. Approximately 10% of breast cancers are not detected by mammography. A normal mammogram should not delay biopsy of a clinically suspicious abnormality. [id number] Electronically Signed: Cooper Thomas, at 9:41 EST , Service support ,
== END ==
PROVIDERS: Family Provider Internal Medicine; PCP Internal Medicine; Referring Provider Nurse Practitioner Women's Health; Visit Provider Nurse Practitioner Women's Health
DX: Z12.31 Encounter for screening mammogram for malignant neoplasm of breast (principal)
CPT/HCPCS: 77063; 77067

== ENCOUNTER 2019-02-06 11:56 | Emergency (ER) | payer MEDICARE, BC, SELFPAY ==
[2019-02-05 14:51] VITALS: BMI 32.1
[2019-02-06 11:57] VITALS: BP 154/87; PULSE 84; RESP 16; TEMP 36.1; O2SAT 99; BMI 31.8
[2019-02-06 11:59] VITALS: BP 154/87; PULSE 84; RESP 16; TEMP 36.1; O2SAT 99
--- NOTE | 2019-02-06 12:22 | EKG12_ITS ---
Test Reason : WEAKNESS Blood Pressure : / mmHG Vent. Rate : 081 BPM Atrial Rate : 081 BPM P-R Int : 168 ms QRS Dur : 082 ms QT Int : 390 ms P-R-T Axes : 042 021 066 degrees QTc Int : 453 ms Normal sinus rhythm Normal ECG Confirmed by WILLIE MERAZ, PERRI ([id number]), editor farm journal CHARLI STEWART ([id number]) on 02/09/2019 10:02:31 AM Referred By: CARLOS Confirmed By:PERRI TAPIA MD
--- NOTE | 2019-02-06 12:22 | CT_ITS ---
STUDY: CT BRAIN WITHOUT CONTRAST REASON FOR EXAM: Female, 64 years old. Dizziness. RADIATION DOSAGE (If Supplied By Facility): CTDIvol = ( 44.99 ) mGy, DLP = ( 745.49 ) mGycm TECHNIQUE: Transaxial CT imaging of the brain was performed without administration of intravenous contrast material. Individualized dose optimization techniques were used for this CT. COMPARISON: No relevant priors. FINDINGS: Normal soft tissue structures. Normal calvarium. Normal size ventricles and extra-axial spaces for the patient's age. Normal white matter tracts of the cerebral hemispheres. Normal basal ganglia and thalami. Normal brainstem. Normal cerebellum. There is no intracranial hemorrhage. There are no findings of an acute ischemic infarction. Normal visualized paranasal sinuses. CT/Brain/Head without Contrast IMPRESSION: Normal unenhanced CT scan of the brain. Electronically Signed: Lázaro Elam MD at 13:37 EST Tel , Service support ,
[2019-02-06] MEDS: LORazepam 2 MG/ML Syringe 0.5 MG IV (12:50)
[2019-02-06] MEDS: Ondansetron 4 MG/2 ML Vial IV (12:50)
[2019-02-06] MEDS: 0.9% Normal Saline 1,000 ML 999 ML IV (12:50)
[2019-02-06 12:51] LABS: Bedside Glucose 148 mg/dL (70-110)
[2019-02-06 12:51] LABS: Absolute Lymphocyte Count 0.97 X10^3/uL (0.83-4.51); Absolute Neutrophil Count 7.2 X10^3/uL (2.0-7.7); Basophil# 0.04 X10^3/uL; Basophil% 0.5 % (0-1); Eosinophil# 0.02 X10^3/uL; Eosinophils% 0.2 % (0-5); Hematocrit 40.8 % (37-47); Lymphocyte # 0.97 X10^3/ul (4.0); Lymphocyte % 11.5 % (19-41); Mean Corp Hgb Conc 34.3 g/dL (32-36); Mean Corpuscular Hgb 30.3 pg (27.0-32.0); Mean Corpuscular Volume 88.3 fL (81-99); Mean Platelet Vol. 9.3 fl (6.2-12.0); Monocyte# 0.16 X10^3/uL; Monocyte% 1.9 % (0-10); NRBC Flagged by Analyzer 0 % (0-5); Neutrophil % 85.5 % (47-70); Platelet Count 313 K/mm3 (150-450); RBC Distribution Width CV 12.9 % (11.6-14.6); RBC Distribution Width SD 41.7 fl (35.1-43.9); Red Blood Count 4.62 M/mm3 (4.2-5.4); White Blood Count 8.4 K/mm3 (4.4-11.0)
[2019-02-06 12:56] LABS: International Normalized Ratio 1.1; Partial Thromboplast Time 23.9 Seconds (24.1-36.2); Prothrombin Time (Protime)PT. 13.6 SECONDS (11.7-14.9)
[2019-02-06 13:00] VITALS: O2SAT 95
--- NOTE | 2019-02-06 13:00 | RAD_ITS ---
STUDY: X-RAY CHEST REASON FOR EXAM: Female, 64 years old. Dizziness. TECHNIQUE: Single AP portable view of the chest. COMPARISON: None. FINDINGS: There is mild elevation of the right hemidiaphragm. The lungs are clear and expanded. There is no demonstrated pleural abnormality. Follow-up Normal mediastinum and chata. Normal visualized pulmonary arteries. There is mild atherosclerotic tortuosity of the aortic arch and descending thoracic aorta. The thoracic spine is not well-seen. There are small calcifications adjacent to the humeral heads bilaterally consistent with calcific tendinitis of the shoulders. There is no demonstrated abnormality of the visualized soft tissue structures of the upper abdomen. RAD/Chest 1 View IMPRESSION: No active pulmonary disease. Electronically Signed: Lázaro Elma MD at 13:42 EST Tel , Service support ,
[2019-02-06 13:08] LABS: Anion Gap 9 (5-15); BUN 18 mg/dL (7-18); BUN/Creat Ratio 20.8 RATIO (10-20); Calcium,Total 9.2 mg/dL (8.5-10.1); Chloride 106 mmol/L (98-107); Creatinine, Serum 0.86 mg/dL (0.55-1.02); EST Glomerular Filtration Rate 70 mL/min (>60); Est Glom Filt Rate - Afr Amer 84 mL/min (>60); Estimated Creatinine Clearance 53.23 ml/min; Glucose 157 mg/dL (74-106); Potassium 3.6 mmol/L (3.5-5.1); Sodium Level 138 mmol/L (136-145)
[2019-02-06 13:54] VITALS: BP 130/86; PULSE 83; RESP 18; TEMP 36.7; O2SAT 97
[2019-02-06 14:04] VITALS: BP 149/93; PULSE 81; RESP 19; O2SAT 97
--- NOTE | 2019-02-06 14:09 | ED.VISSUMM ---
- ER Visit Summary Date of Service: 02/06/19 Chief Complaint: Dizziness History of Present Illness: The patient is a 64 F with dizziness that started around 730 this morning. It feels like the room is spinning. Symptoms are worse when she moves or tries to walk. Associated with nausea, vomiting, and sweats. Patient had an upper respiratory infection 2 weeks ago. Denies any recent fevers. Denies head trauma. Denies any other neurologic symptoms like vision changes, facial droop, speech changes, or weakness. Denies any significant past medical history. Physical Examination: Afebrile and vital signs are unremarkable. Patient is sitting with her eyes closed. She appears uncomfortable. She is alert and oriented. HEENT exam shows horizontal nystagmus with fast saccades to the left. Cranial nerves otherwise unremarkable. Neck is nontender with good range of motion. Heart regular. Lungs clear. Skin is normal. Good strength and sensation and cerebellar testing otherwise Test Results: EKG shows sinus rhythm at a rate of 81. CBC, BMP, coags, troponin unremarkable. Chest x-ray and CT brain unremarkable. Emergency Department Course and Treatment: Patient presents with the sudden onset of vertigo. Her symptoms are more concerning for peripheral vertigo. Because of her age she was worked up conservatively. Her work-up was unremarkable. She was treated with fluids, Ativan, and Zofran. Her work-up was unremarkable. Her exam otherwise was reassuring and her vitals were reassuring. On reevaluation, her symptoms have resolved. Patient would like to go home. I advised her that I cannot rule out stroke. Her symptoms are more concerning for peripheral vertigo, and she voiced understanding and agreement. Will discharge on a prescription for meclizine. Follow-up with her family doctor. Return right away for any new or worsening issues. Call 911 for any stroke symptoms. Treatment Plan: As above Disposition: Discharge Impression: 1. Vertigo This note was generated with [employer] software. It may contain incorrect words, spelling, and punctuation that were not noted in review of the chart prior to signing ED Disposition - Plan for ED Patient: Referrals: Sana Sage MD [Primary Care Provider] -
--- NOTE | 2019-02-06 14:13 | ED.DEP ---
ED Disposition - Plan for ED Patient: Instructions: VERTIGO, Unspecified Prescriptions: Meclizine HCl [Antivert] 25 mg PO TID PRN PRN #30 tab PRN Reason: Dizziness Prescription Printed Referrals: Sana Sage MD [Primary Care Provider] -
[2019-02-06 14:32] VITALS: BP 142/85; PULSE 71; RESP 16; O2SAT 99
== END 2019-02-06 14:32 | disposition home or self-care (01) ==
LOC: ED 12:28
PROVIDERS: Emergency Provider Emergency Medicine; Family Provider Internal Medicine; PCP Internal Medicine
DX: R42 Dizziness and giddiness (principal)
CPT/HCPCS: 70450; 71045; 80048; 82962; 84484; 85025; 85610; 85730; 93005; 96361; 96374; 96375; 99284; J7030; A4216; J2405

== ENCOUNTER → 2019-03-23 07:54 | Outpatient (CLI) | payer MEDICARE, BC, SELFPAY ==
[2019-03-08 08:26] VITALS: BMI 31.8
--- NOTE | 2019-03-23 07:55 | CT_ITS ---
STUDY: CT ABDOMEN WITH CONTRAST REASON FOR EXAM: Female, 64 years old. Chronic RUQ pain x 1 1/2 years. No prior surgery, cancer, diabetes or hypertension. RADIATION DOSAGE (If Supplied By Facility): CTDIvol = ( 13.05 ) mGy, DLP = ( 564.98 ) mGycm TECHNIQUE: Transaxial images were obtained post I.V. administration of IV 100mL Isovue-300 and amp; Readi-CAT, and with oral contrast. Sagittal and coronal images were reconstructed. Individualized dose optimization techniques were used for this CT. COMPARISON: Comparison is made with prior study date June 01, 2016. FINDINGS: The visualized lung bases are unremarkable. The visualized portions of the heart are within normal limits. Stable appearance of the small cysts in the liver. The largest measures 1.4 cm. Normal gallbladder and extrahepatic biliary system. Normal spleen. Normal pancreas. Normal bilateral adrenal glands. Normal right kidney. Normal left kidney. Normal visualized stomach. Normal small intestine. Normal colon. The appendix is visualized and appears normal. Normal abdominal aorta. Normal inferior vena cava. There is borderline retroperitoneal lymphadenopathy with enlarged nodes no greater than 10mm in the short axis diameter. Normal abdominal wall. Normal osseous structures. CT/Abdomen WITH IV Contrast IMPRESSION: Stable appearance of the hepatic cysts. Electronically Signed: Cooper Thomas, at 9:22 EST , Service support ,
[2019-03-23 08:16] LABS: CREATININE FINGERSTICK 0.8 mg/dL (0.55-1.02); EGFR FINGERSTICK > 60.0000 mL/min (>60)
== END ==
PROVIDERS: Family Provider Internal Medicine; PCP Internal Medicine; Referring Provider Internal Medicine; Visit Provider Internal Medicine
DX: R10.9 Unspecified abdominal pain (principal); G89.29 Other chronic pain
CPT/HCPCS: 74160; Q9967

== ENCOUNTER → 2019-05-05 09:53 | Outpatient (CLI) | payer MEDICARE, BC, SELFPAY ==
[2019-05-05 09:21] VITALS: BMI 31.8
[2019-05-05 12:54] LABS: Anion Gap 5 (5-15); BUN 17 mg/dL (7-18); BUN/Creat Ratio 19.2 RATIO (10-20); Calcium,Total 9.5 mg/dL (8.5-10.1); Chloride 105 mmol/L (98-107); Cholesterol 274 mg/dL (200); Creatinine, Serum 0.88 mg/dL (0.55-1.02); EST Glomerular Filtration Rate 68 mL/min (>60); Est Glom Filt Rate - Afr Amer 82 mL/min (>60); Glucose 96 mg/dL (74-106); Hemoglobin A1c 5.8 % (4.2-6.3); High Density Lipoprotein 58 mg/dL; Potassium 3.9 mmol/L (3.5-5.1); Sodium Level 140 mmol/L (136-145); Triglycerides 260 mg/dL; Very Low Density Lipoprotein 52 mg/dL (5-40)
[2019-10-14 11:07] VITALS: BMI 31.8
== END ==
PROVIDERS: PCP Internal Medicine; Referring Provider Internal Medicine; Visit Provider Internal Medicine
DX: I10 Essential (primary) hypertension (principal); R73.9 Hyperglycemia, unspecified
CPT/HCPCS: 36415; 80048; 80061; 83036

== ENCOUNTER → 2019-12-07 09:57 | Outpatient (CLI) | payer MEDICARE, BC, SELFPAY ==
[2019-12-07 09:33] VITALS: BMI 31.8
[2019-12-07 12:01] LABS: Absolute Lymphocyte Count 1.75 X10^3/uL (0.83-4.51); Absolute Neutrophil Count 3.2 X10^3/uL (2.0-7.7); Basophil# 0.02 X10^3/uL; Basophil% 0.4 % (0-1); Eosinophils% 1.9 % (0-5); Hematocrit 38.7 % (37-47); Lymphocyte # 1.75 X10^3/ul (4.0); Lymphocyte % 32.9 % (19-41); Mean Corp Hgb Conc 33.6 g/dL (32-36); Mean Corpuscular Hgb 30.2 pg (27.0-32.0); Mean Corpuscular Volume 89.8 fL (81-99); Mean Platelet Vol. 9.9 fl (6.2-12.0); Monocyte# 0.26 X10^3/uL; Monocyte% 4.9 % (0-10); NRBC Flagged by Analyzer 0 % (0-5); Neutrophil # 3.18 X10^3/uL (2.7-7.7); Neutrophil % 59.7 % (47-70); Platelet Count 292 K/mm3 (150-450); RBC Distribution Width CV 12.7 % (11.6-14.6); RBC Distribution Width SD 41.8 fl (35.1-43.9); Red Blood Count 4.31 M/mm3 (4.2-5.4); White Blood Count 5.3 K/mm3 (4.4-11.0)
[2019-12-07 12:20] LABS: ALB/GLOB Ratio 1.2 RATIO (0.9-2.4); AST(SGOT) 17 U/L (15-37); Alanine Aminotransfer ALT/SGPT 31 U/L (13-56); Albumin, Serum 3.8 g/dL (3.2-5.0); Alkaline Phosphatase 110 U/L (45-117); Anion Gap 4 (5-15); BUN 14 mg/dL (7-18); BUN/Creat Ratio 18.9 RATIO (10-20); Chloride 106 mmol/L (98-107); Cholesterol 262 mg/dL (200); Creatinine, Serum 0.74 mg/dL (0.55-1.02); EST Glomerular Filtration Rate 83 mL/min (>60); Est Glom Filt Rate - Afr Amer 101 mL/min (>60); Globulin 3.3 g/dL (2.2-4.2); Glucose 94 mg/dL (74-106); High Density Lipoprotein 60 mg/dL; Potassium 3.7 mmol/L (3.5-5.1); Protein, Total 7.1 g/dL (6.4-8.2); Sodium Level 141 mmol/L (136-145); Triglycerides 216 mg/dL; Very Low Density Lipoprotein 43 mg/dL (5-40)
[2019-12-07 12:23] LABS: Microalbumin,Random Urine < 5.0 mg/L (NO RANGE EST.)
== END ==
PROVIDERS: PCP Internal Medicine; Referring Provider Nurse Practitioner Family; Visit Provider Nurse Practitioner Family
DX: E78.5 Hyperlipidemia, unspecified (principal); I10 Essential (primary) hypertension; M53.9 Dorsopathy, unspecified; M75.00 Adhesive capsulitis of unspecified shoulder
CPT/HCPCS: 36415; 80053; 80061; 82043; 82570; 84443; 85025

== ENCOUNTER → 2020-01-27 14:56 | Outpatient (CLI) | payer MEDICARE, BC, SELFPAY ==
[2019-12-07 09:33] VITALS: BMI 31.8
--- NOTE | 2020-01-27 14:57 | BI_ITS ---
MAMMOGRAPHY - BILATERAL SCREENING REASON FOR EXAM: Female, 65 years old. Routine annual screening examination. PERTINENT HISTORY: Aunts with breast cancer. TECHNIQUE: Digital bilateral breast khari (3D mammographic acquisition) in the CC and MLO projections. 2-D mediolateral oblique (MLO) and craniocaudad (CC) views of both breasts were obtained. CAD: Full Field Digital Mammography with Computer Added Detection was performed. COMPARISON: Comparison is made with prior study dated 01/19/2019 and 01/14/2018. FINDINGS: Breast Composition: There are scattered areas of fibroglandular density. There are no dominant masses or suspicious calcifications. Stable small benign-appearing bilateral axillary lymph nodes. No other significant abnormalities are identified. There has been no significant change since the prior study. BI/SCREEN MAMM (CAD) W/KHARI BILAT IMPRESSION: Stable bilateral screening mammogram. Yearly follow-up mammogram recommended. (A) ASSESSMENT CATEGORY: BIRADS Category 2: Benign. A letter regarding these results will be sent to the patient by the facility within 30 days. Approximately 10% of breast cancers are not detected by mammography. A normal mammogram should not delay biopsy of a clinically suspicious abnormality. [id number] Electronically Signed: Cooper Thomas, at 8:04 EST , Service support ,
--- NOTE | 2020-01-27 15:01 | BD_ITS ---
STUDY: DUAL ENERGY X-RAY ABSORPTIOMETRY / DXA REASON FOR EXAM: Female, 65 years old. Age of alysha 56. Pat is 182.3# and 62 and quot; a loss of 1 and quot; per pat. Hx of smoking a long time ago.Does not exercise. TECHNIQUE: Bone Mineral Density (BMD) measurements of lumbar spine and bilateral hips were obtained. COMPARISON: None. FINDINGS: Lumbar Spine (L1-L4): g/cm2 (1.194) / T-score (0.1) / Z-score (1.7) Findings are suggestive of normal bone density with a low fracture risk. Left Femur Total: g/cm2 (0.852) / T-score (-1.2) / Z-score (0.1) Left Femoral Neck: g/cm2 (0.797) / T-score (-1.7) / Z-score (-0.2) Right Femur Total: g/cm2 (0.779) / T-score (-1.8) / Z-score (-0.5) Right Femoral Neck: g/cm2 (0.749) / T-score (-2.1) / Z-score (0.5) BD/Dexa Bone Density Study IMPRESSION: The patient is considered osteopenic as outlined below according to World Junior Organization (WHO) criteria with a moderate fracture risk. Reference Information: The T-score is the number of standard deviations above or below the standard which is normal for young adults at their peak bone mineral density. The World Health Organization (WHO) interprets the T-scores as follows: Above -1 Normal bone density Between -1 and -2.5 Osteopenia Equal to / or below -2.5 Osteoporosis As a practical clinical guideline, osteopenia may be graded as follows: Mild -1 through -1.5 Moderate -1.6 through -2.0 Severe -2.1 through -2.4 The Z-score is the number of standard deviations above or below age-matched controls. A Z-score of less than -1.5 would be considered abnormal. References: 1. NIH Osteoporosis and Related Bone Diseases www osteo.org 2. International Society for Clinical Densitometry www iscd.org 3. National Osteoporosis Foundation www nof.org Electronically Signed: Cooper Thomas, at 9:00 EST , Service support ,
== END ==
PROVIDERS: PCP Internal Medicine; Referring Provider Nurse Practitioner Women's Health; Visit Provider Nurse Practitioner Women's Health
DX: Z12.31 Encounter for screening mammogram for malignant neoplasm of breast (principal); Z78.0 Asymptomatic menopausal state
CPT/HCPCS: 77063; 77067; 77080

== ENCOUNTER 2020-03-20 07:43 | Day surgery (SDC) | payer MEDICARE, BC, SELFPAY ==
[2020-03-20] VITALS (8 sets, daily range): BP systolic 94–154; BP diastolic 59–93; PULSE 67–103; RESP 16–18; TEMP 36.1–36.4; O2SAT 96–100; BMI 32.1
[2020-03-20] MEDS: Lactated Ringers 1,000 ML 100 ML IV (08:00)
--- NOTE | 2020-03-20 08:43 | SUR.PREOP ---
tap water enema given per dr cameron paetl
--- NOTE | 2020-03-20 08:45 | EGD_PTH ---
PATIENT: AYAH WILLIAMSON LOC: EN U#:[id number] AGE/SX: 65/F ROOM: RE03/20/[address]: Dr. Nahomy Dooley MD : 1955 BED: DIS: 03/20/2020 SPEC #: [id number] RECD: 03/20/20 11:15 STATUS: AYLA RACHEL #: [id number] WEST: 03/20/20 08:[address]: Nahomy Dooley DEPT: SURGICAL PATHOLOGY RECD BY: Norma Dhillon ENTERED: 03/20/20 12:12 SP TYPE: EGD BIOPSY OT DR: Dr. Sana Sage MD Tissues: A - Gastric mucous membrane B - Gastric mucous membrane C - Gastric mucous membrane D - Rectum, NOS Procedures: Special Stain Group II Surgery Specimen Level IV Alcian Blue/PAS (control) HEADER OPERATION: [place] [place] DIAGNOSIS: Bloating, reflux, epigastric pain, family history colon cancer TISSUE SUBMITTED: A - Antrum biopsy for H. pylori and path, B - Gastric body polyp biopsy, C - GE junction biopsies, D - Rectum biopsy of polyp MICROSCOPIC DIAGNOSIS A. Antrum biopsy: Mild gastritis. See microscopic description and comment. B. Gastric body polyp, biopsy: Fundic gland polyp. C. GE junction, biopsy: Fragments of gastroesophageal mucosa with focal ulceration and moderate acute and chronic inflammation. Reactive epithelial changes. Intestinal metaplasia (goblet cell metaplasia) not identified. See comment. D. Rectal polyp, biopsy: Hyperplastic polyp. SJ:rg 03/21/2020 COMMENT A. The results of immunohistochemistry for Helicobacter pylori will be reported separately ([id number]). B. Alcian blue/PAS stain with matched control is used in the evaluation of the specimen. MICROSCOPIC DESCRIPTION Slides are reviewed. A. The specimen shows fragments of gastric mucosa with chronic inflammatory cell infiltrates in the lamina propria consisting of lymphocytes and plasma cells, consistent with mild chronic gastritis. GROSS DESCRIPTION A - Received in fixative is one container labeled with the patient's name and designated antrum biopsy. The specimen consists of one irregular fragment of light leon soft tissue that measures 0.5 x 0.2 x 0.1 cm. The specimen is totally submitted in one cassette. B - Received in fixative is one container labeled with the patient's name and designated gastric body polyp. The specimen consists of two irregular fragments of light leon soft tissue that in aggregate measure 0.3 x 0.3 x 0.1 cm. The specimen is totally submitted in one cassette. C - Received in fixative is one container labeled with the patient's name and designated GE junction biopsy. The specimen consists of multiple irregular fragments of light leon soft tissue that in aggregate measure 0.7 x 0.6 x 0.1 cm. The specimen is totally submitted in one cassette. D - Received in fixative is one container labeled with the patient's name and designated rectal polyp biopsy. The specimen consists of one irregular fragment of light leon soft tissue that measures 0.5 x 0.2 x 0.1 cm. The specimen is totally submitted in one cassette. / AM:shahid 03/20/2020 TC:2 CPT: 68645 x4, 44953
--- NOTE | 2020-03-20 08:45 | IMM_PTH ---
PATIENT: AYAH WILLIAMSON LOC: EN U#:[id number] AGE/SX: 65/F ROOM: RE03/20/[address]: Dr. Nahomy Dooley MD : 1955 BED: DIS: 03/20/2020 SPEC #: [id number] RECD: 03/20/20 12:21 STATUS: AYLA REQ #: [id number] WEST: 03/20/20 08:[address]: Nahomy Dooley DEPT: IMMUNOHISTOCHEMISTRY RECD BY: Areli Aguirre ENTERED: 03/20/20 12:22 SP TYPE: IMMUNO OTHR DR: Dr. Sana Sage MD Tissues: A - Stomach, NOS Procedures: H Pylori (initial) PHYSICIAN & INSTITUTION [place] [address] SPECIMEN INFORMATION: Tissue Source: A - Antrum biopsy Clinical Info: Bloating, reflux, epigastric pain, family history colon cancer Specimen Number: [id number] CPT code: 89003 METHODOLOGY: Deparaffinized sections of prefer/formalin-fixed tissue or PAP/DQ stained slides are incubated with monoclonal/polyclonal antibodies/oligonucleotide probes. Localization is made via biotin free immunoperoxidase method. Appropriate controls are performed and reacted as expected. Results on target cell population are indicated in the following table: RESULTS: ANTIBODY / CLONE RESULT Block A H Pylori (polyclonal) negative These tests were developed and their performance characteristics determined by [facility]. They may not have been cleared or approved by the U.S. Food and Drug Administration. The FDA has determined that such clearance or approval is not necessary. INTERPRETATION: A. Antrum, biopsy: Negative for Helicobacter pylori organisms. SJ:shahid 03/21/2020
--- NOTE | 2020-03-20 08:48 | H&P.OPEN ---
History of Present Illness Date of Admission: 03/20/20 The patient is a 65 year old F presents for EGD and colonoscopy due to reflux and bloating/epigastric/right upper quadrant abdominal pain and family history of colon cancer in her mother. Patient states she does have daily bloating and epigastric abdominal pain. Patient denies being on any PPI. Patient's last colonoscopy was 5 years ago which was normal per patient. Past Medical/Surgical History - Planned Operation Planned Operative Procedure/s: EGD/COLONOSCOPY Date of Operative Procedure: 03/20/20 Permit Signed: No S.O.S: No Is This Patient Having a Total Joint: No - Previous Hospitalizations/Surgeries HX Hospitalizations: No HX of Surgeries: Tonsils as a child. Colonoscopy Any Problems With Anesthesia: No You/Your Family Experience Fever (Hyperthermia) With Anes: No Cholinesterase deficiency: No - Cardiovascular Hx Chest Pain within Last 2 months: No Hx of Irregular Heartbeat and/or Afib: No Hx Heart Attack: No Hx Congestive Heart Failure: No Hx Rheumatic Fever: No Hx Hypertension: No Hx Internal Defibrillator: No Hx Pacemaker: No Hx Cardiac Catheterization: No Hx Cardiac Surgery/Stents/Etc.: No Hx Stress Test: No HX Edema: No Hx Pain in Legs when Walking/Leg Cramps: No - Respiratory Chronic Cough: No HX of Shortness of Breath: No Hoarseness: No Hx Chronic Obstructive Pulmonary Disease (COPD): No Hx Asthma: No Hx Emphysema: No Hx Sleep Apnea: No Hx Oxygen Use at Home: No Hx Respiratory Tract Infection/Cold (presently): No Do You Snore Loudly (louder than talking or can be heard): No Do You Often Feel Tired/ Fatigued/ Sleepy Dring Daytime?: No Has Anyone Observed You Stop Breathing During Sleep?: No Result (for STOP score): Negative Hx Smoking: Yes - quit 1977 Smoking Status: Former smoker - Gastrointestinal Hx Gastroesophageal Reflux: Yes Controlled With Meds: Yes - PRN meds Hx Gastrointestinal Disorders: Yes - IBS Hx Gastrointestinal Bleed: No Hx Ulcer: No Hx Hiatal Hernia: No Difficulty Chewing/Swallowing: No Recent Onset of Swallowing Problems: No Special diet followed at home: No Hx Unplanned Weight Loss of 20#: No HX Unplanned Weight Gain of 20#: No - Neurological Hx Seizures: No HX Syncope/Blackout Spells/Unconsciousness: No Hx CVA/Stroke: No Hx Transient Ischemic Attacks (TIA): No Hx Multiple Sclerosis: No Hx Parkinson's Disease: No Hx Head/Neck Injury: No Hx Headaches: No Hx Back Injury/Pain: Yes - Chronic back pain Recent Onset of Speech Difficulty: No Restless Legs: No Does patient have nerve stimulator: No Patient instructed to have device shut off: No Rep notified?: No - Blood Disorder Hx Leukemia: No Bleeding Tendencies: No Hx Deep Vein Thrombosis: No Hx High Cholesterol: No Blood Transmitted Disease: No Hx Hepatitis: No Hx Cirrhosis: No Hx Anemia: No Hx Blood Disorders: No - Reproduction : No Is Patient Lactating: No Hx Hysterectomy: No Hx Tubal Ligation: No Are You Post Menopause: Yes - Genitourinary Hx Renal Disease: No - Musculoskeletal Hx Arthritis: No Hx Rheumatoid Arthritis: No Hx Gout: No Recent Onset of an Orthopedic Problem: No - Endocrine Hx Diabetes: No Thyroid Disease: No Hx Steroid Therapy: No - Psycho/Social Hx Substance Use: No Hx Alcohol Use: No Hx Anxiety: No Hx Depression: No Mental Illness: No Hx Dementia: No - Miscellaneous Hx Cancer: No Recent Exposure to Contagious Disease: No Active MRSA: No Hx of C-Diff: No Any Loose Teeth: No Allergies amoxicillin Allergy (Unknown, Verified 03/20/20 07:52) Hives Penicillins [PCN] Adverse Reaction (Verified 03/20/20 07:52) Hives - Discharge Is Pt Admitted From a Long Term, or a Halfway: No After D/C, Where Do you Plan to Go: Return Home - Physical Exam Vitals/I&O's: Vital Signs Temp Pulse Resp BP Pulse Ox 96.9 F L 103 H 16 154/93 H 96 03/20/20 08:01 03/20/20 08:01 03/20/20 08:01 03/20/20 08:01 03/20/20 08:01 Oxygen Delivery Method Room Air Weight: 180 lb 15.992 oz Body Mass Index (BMI) 32.1 Finger Stick Blood Glucose 148 General: Alert, Oriented x3, Cooperative, No apparent distress HEENT: Atraumatic Lungs: Normal air movement Cardiovascular: Regular Rhythm Abdomen: Soft, Non-Distended, Tender - Minimal tenderness epigastric, no peritoneal signs Extremities: No clubbing, No cyanosis, No edema Skin: No rashes Neurological: Cranial nerves II-XII grossly intact Psych/Mental Status: Normal Affect Current Medications Lactated Ringer's () 1,000 mls @ 100 mls/hr IV .Q10H KHALIF Last Admin: 03/20/20 08:00 Dose: 100 mls/hr Documented by: Assessment/Plan All Active Problems (Last Reviewed 03/03/20 @ 09:09 by Keisha Griffith) Osteopenia (Acute) Hx of colonoscopy (Acute) Hx of tonsillectomy (Acute) Hemorrhoids (Acute) 65-year-old female with bloating, reflux, epigastric pain, family history of colon cancer in her mother Procedure Criteria Procedure Type: Elective COVID Risk Discussion: The surgeon/proceduralist and patient have discussed in detail the risk of exposure to and/or potential harm posed by the COVID-19 virus with having a surgery/procedure at this time versus the risk of delaying the surgery/procedure. It is not possible to know either the risk of delaying the surgery or procedure or chance of getting an infection with perfect accuracy, but a joint decision was made between the patient and the surgeon/proceduralist to proceed at this time with the scheduled surgery/procedure as indicated on the consent form. Surgery Risks - Colonoscopy I discussed with the patient the risks of the procedure: Yes Risks Include but are not Limited To: Risks include but are not limited to: Bleeding, perforation requiring further surgery, inability to complete colonoscopy requiring barium enema.
--- NOTE | 2020-03-20 09:46 | OP.EGD_ITS ---
Patient Name: Cassie Bar Procedure Date: 03/20/2020 8:58 AM Date of : 1955 Age: 65 Procedure: Upper GI endoscopy Indications: Epigastric abdominal pain, Abdominal pain in the right upper quadrant, Heartburn Providers: Nahomy Dooley MD Referring MD: Sana Sage MD Medicines: Monitored Anesthesia Care Patient Profile: This is a 65 year old female. Complications: No immediate complications. Procedure: Pre-Anesthesia Assessment: - Prior to the procedure, a History and Physical was performed, and patient medications and allergies were reviewed. The patient's tolerance of previous anesthesia was also reviewed. The risks and benefits of the procedure and the sedation options and risks were discussed with the patient. All questions were answered, and informed consent was obtained. Prior Anticoagulants: The patient has taken no previous anticoagulant or antiplatelet agents. ASA Grade Assessment: Per anesthesia. After reviewing the risks and benefits, the patient was deemed in satisfactory condition to undergo the procedure. After obtaining informed consent, the endoscope was passed under direct vision. Throughout the procedure, the patient's blood pressure, pulse, and oxygen saturations were monitored continuously. The Endoscope was introduced through the mouth, and advanced to the second part of duodenum. The upper GI endoscopy was accomplished without difficulty. The patient tolerated the procedure well. Scope In: 9:09:06 AM Scope Out: 9:17:47 AM Total Procedure Duration Time 0 hours 8 minutes 41 seconds Findings: The Z-line was irregular and was found 40 cm from the incisors. Biopsies were taken with a cold forceps for histology. Moderately erythematous mucosa without bleeding was found in the gastric antrum. Biopsies were taken with a cold forceps for histology. Biopsies were taken with a cold forceps for Helicobacter pylori cultures. The cardia and gastric fundus were normal on retroflexion. Multiple less than 5 mm semi-sessile polyps with no bleeding and no stigmata of recent bleeding were found in the gastric body. The polyp was removed with a cold biopsy forceps. Resection and retrieval were complete. The examined duodenum was normal. Moderate erythema was found at the gastroesophageal junction. Biopsies were taken with a cold forceps for histology. Impression: - Z-line irregular, 40 cm from the incisors. Biopsied. - Erythematous mucosa in the antrum. Biopsied. - Multiple gastric polyps. Resected and retrieved. - Normal examined duodenum. - Erythema at the gastroesophageal junction. Biopsied. Recommendation: - Await pathology results. - Use Protonix (pantoprazole) 40 mg PO daily. - Continue present medications. Procedure Code(s): --- Professional --- 93184, Esophagogastroduodenoscopy, flexible, transoral; with biopsy, single or multiple Diagnosis Code(s): --- Professional --- K22.8, Other specified diseases of esophagus K31.89, Other diseases of stomach and duodenum K31.7, Polyp of stomach and duodenum R10.13, Epigastric pain R10.11, Right upper quadrant pain R12, Heartburn CPT copyright 2017 [employer]. All rights reserved. The codes documented in this report are preliminary and upon claim manager review may be revised to meet current compliance requirements. MD Nahomy Harris MD 03/20/2020 9:46:23 AM This report has been signed electronically. Number of Addenda: 0 Note Initiated On: 03/20/2020 8:58 AM
--- NOTE | 2020-03-20 09:46 | OP.CCLET_ITS ---
03/20/2020 Sana Sage MD [address] [place] [address] [place] [address] Re : Upper GI endoscopy procedure for Cassie Bar Dear Dr. Sage This procedure was performed on Friday, March 20, 2020. My impressions and recommendations are as follows: Impressions : - Z-line irregular, 40 cm from the incisors. Biopsied. - Erythematous mucosa in the antrum. Biopsied. - Multiple gastric polyps. Resected and retrieved. - Normal examined duodenum. - Erythema at the gastroesophageal junction. Biopsied. Recommendations : - Await pathology results. - Use Protonix (pantoprazole) 40 mg PO daily. - Continue present medications. My findings are described in the full procedure note, which is enclosed. If I can be of further assistance, please feel free to contact me at Doctor phone number(s): , Work: . Sincerely, MD Nahomy Harris MD 03/20/2020 9:46:23 AM This report has been signed electronically.
--- NOTE | 2020-03-20 09:50 | OP.CCLET_ITS ---
03/20/2020 Sana Sage MD [address] [place] [address] [place] [address] Re : Colonoscopy procedure for Cassie Bar Dear Dr. Sage This procedure was performed on Friday, March 20, 2020. My impressions and recommendations are as follows: Impressions : - One less than 5 mm polyp in the rectum, removed with a cold biopsy forceps. Resected and retrieved. - The examination was otherwise normal on direct and retroflexion views. Recommendations : - Discharge patient to home. - Resume previous diet. - Continue present medications. - Await pathology results. - Repeat colonoscopy in 5 years for surveillance based on pathology results. My findings are described in the full procedure note, which is enclosed. If I can be of further assistance, please feel free to contact me at Doctor phone number(s): , Work: . Sincerely, MD Nahomy Harris MD 03/20/2020 9:49:25 AM This report has been signed electronically.
--- NOTE | 2020-03-20 09:50 | OP.COLON_ITS ---
Patient Name: Cassie Bar Procedure Date: 03/20/2020 9:18 AM Date of : 1955 Age: 65 Procedure: Colonoscopy Indications: Colon cancer screening in patient at increased risk: Colorectal cancer in mother Providers: Nahomy Dooley MD Referring MD: Sana Sage MD Medicines: Monitored Anesthesia Care Patient Profile: This is a 65 year old female. This is a 65 year old female. Last Colonoscopy: 5 years ago. Complications: No immediate complications. Procedure: Pre-Anesthesia Assessment: - Prior to the procedure, a History and Physical was performed, and patient medications and allergies were reviewed. The patient's tolerance of previous anesthesia was also reviewed. The risks and benefits of the procedure and the sedation options and risks were discussed with the patient. All questions were answered, and informed consent was obtained. Prior Anticoagulants: The patient has taken no previous anticoagulant or antiplatelet agents. ASA Grade Assessment: Per anesthesia. After reviewing the risks and benefits, the patient was deemed in satisfactory condition to undergo the procedure. After I obtained informed consent, the scope was passed under direct vision. Throughout the procedure, the patient's blood pressure, pulse, and oxygen saturations were monitored continuously. The Colonoscope was introduced through the anus and advanced to the cecum, identified by the appendiceal orifice, ileocecal valve and palpation. The colonoscopy was performed without difficulty. The patient tolerated the procedure well. The quality of the bowel preparation was good. Scope In: 9:20:27 AM Scope Withdrawal Time 0 hours 8 minutes 43 seconds Scope Out: 9:34:51 AM Total Procedure Duration Time 0 hours 14 minutes 24 seconds Findings: The perianal and digital rectal examinations were normal. A less than 5 mm polyp was found in the rectum. The polyp was sessile. The polyp was removed with a cold biopsy forceps. Resection and retrieval were complete. The exam was otherwise without abnormality on direct and retroflexion views. Impression: - One less than 5 mm polyp in the rectum, removed with a cold biopsy forceps. Resected and retrieved. - The examination was otherwise normal on direct and retroflexion views. Recommendation: - Discharge patient to home. - Resume previous diet. - Continue present medications. - Await pathology results. - Repeat colonoscopy in 5 years for surveillance based on pathology results. Procedure Code(s): --- Professional --- 67862, PT, Colonoscopy, flexible; with biopsy, single or multiple Diagnosis Code(s): --- Professional --- Z80.0, Family history of malignant neoplasm of digestive organs K62.1, Rectal polyp CPT copyright 2017 [employer]. All rights reserved. The codes documented in this report are preliminary and upon health information coder review may be revised to meet current compliance requirements. MD Nahomy Harris MD 03/20/2020 9:49:25 AM This report has been signed electronically. Number of Addenda: 0 Note Initiated On: 03/20/2020 9:18 AM
[2020-03-20] MEDS: Famotidine 200 MG/20 ML MDV 20 MG in 0.9% Normal Saline (Pres. free 8 ML 300 MG IV (10:06)
== END 2020-03-20 10:58 | disposition home or self-care (01) ==
LOC: EN 07:46 → AC 07:46
PROVIDERS: PCP Internal Medicine; Referring Provider Internal Medicine; Visit Provider Surgery
PROC: 0DJD8ZZ Inspection of Lower Intestinal Tract, Via Natural or Artificial Opening Endoscopic (ICD-10-PCS; CPT 45378; principal; 2020-03-20 08:40)
DX: K29.70 Gastritis, unspecified, without bleeding (principal); K31.7 Polyp of stomach and duodenum; K62.1 Rectal polyp; K21.9 Gastro-esophageal reflux disease without esophagitis; Z80.0 Family history of malignant neoplasm of digestive organs; Z20.828 Contact with and (suspected) exposure to other viral communicable diseases; K58.9 Irritable bowel syndrome, unspecified; M85.80 Other specified disorders of bone density and structure, unspecified site; Z78.0 Asymptomatic menopausal state; Z87.891 Personal history of nicotine dependence
CPT/HCPCS: 43239; 45380; 87426; 88305; 88313; 88342; C9803; J7120; J2405; J3490

== ENCOUNTER 2020-05-13 13:34 | Emergency (ER) | payer MEDICARE, BC, SELFPAY ==
[2020-03-20 08:01] VITALS: BMI 32.1
[2020-05-13 13:35] VITALS: BP 156/79; PULSE 105; RESP 20; TEMP 36.2; O2SAT 97; BMI 31.8
--- NOTE | 2020-05-13 13:50 | CT_ITS ---
STUDY: CT ABDOMEN AND PELVIS WITH CONTRAST REASON FOR EXAM: Female, 65 years old. Pain bloating right lower quadrant pain, IBS RADIATION DOSAGE (If Supplied By Facility): CTDIvol = ( 15.05 ) mGy, DLP = ( 998.92 ) mGycm TECHNIQUE: CT images were obtained from the dome of the diaphragm to the symphysis pubis without oral contrast. IV 100mL Isovue-370 was administered. Sagittal and coronal images were reconstructed. Individualized dose optimization techniques were used for this CT. COMPARISON: 23 March 2019 FINDINGS: The visualized lung bases are unremarkable. The visualized portions of the heart are within normal limits. There are stable simple small hepatic cysts. There are no solid lesions or biliary dilation. 6.. Normal gallbladder and extrahepatic biliary system. Normal spleen. Normal pancreas. Normal bilateral adrenal glands. Normal right kidney. Normal left kidney. Normal visualized stomach. Normal small intestine. Normal colon. The appendix is visualized and appears normal. Normal abdominal aorta. Normal inferior vena cava. Normal retroperitoneum. Normal urinary bladder. Uterus contains postmenopausal involuted partially calcified fibroids. Normal abdominal wall. Normal osseous structures. Appearance is stable since prior. CT/Abdomen/Pelvis W IV Cont ONLY IMPRESSION: No acute findings. No change since prior. Electronically Signed: Kim Emmanuel MD at 15:13 EST Tel , Service support ,
[2020-05-13 14:03] LABS: Absolute Lymphocyte Count 2.21 X10^3/uL (0.83-4.51); Absolute Neutrophil Count 4.7 X10^3/uL (2.0-7.7); Basophil# 0.04 X10^3/uL; Basophil% 0.5 % (0-1); Eosinophil# 0.15 X10^3/uL; Hematocrit 39.6 % (37-47); Hemoglobin 13.1 g/dL (12.0-15.0); Lymphocyte # 2.21 X10^3/ul (4.0); Lymphocyte % 29.4 % (19-41); Mean Corp Hgb Conc 33.1 g/dL (32-36); Mean Corpuscular Volume 90.8 fL (81-99); Mean Platelet Vol. 9.4 fl (6.2-12.0); Monocyte# 0.36 X10^3/uL; Monocyte% 4.8 % (0-10); NRBC Flagged by Analyzer 0 % (0-5); Neutrophil # 4.74 X10^3/uL (2.7-7.7); Platelet Count 304 K/mm3 (150-450); RBC Distribution Width CV 12.6 % (11.6-14.6); RBC Distribution Width SD 42.2 fl (35.1-43.9); Red Blood Count 4.36 M/mm3 (4.2-5.4); White Blood Count 7.5 K/mm3 (4.4-11.0)
[2020-05-13] MEDS: 0.9% Normal Saline 1,000 ML 1000 ML IV (14:16)
[2020-05-13 14:20] LABS: Bacteria 0 SEEN /hpf (None Seen); Mucous, Urine 0 SEEN /hpf (<or=2+); Red Blood Cells-Urine 0 SEEN /hpf (0-5)
[2020-05-13 14:21] LABS: Color, Urine Straw (Yellow); Glucose, Dipstick Normal (Normal); Ketone-Dipstick Negative (Negative); Leukocyte Esterase-Dipstick Negative /ul (Negative); Nitrite-Dipstick Negative (Negative); Occult Blood-Urine Negative /ul (Negative); Protein-Dipstick Negative (Negative); Urine Bilirubin Dipstick Negative (Negative); Urine Clarity Clear (Clear); Urine Urobilinogen Normal (Normal); Urine pH 6.5 (5.0 - 8.0)
[2020-05-13 14:22] LABS: ALB/GLOB Ratio 1.1 RATIO (0.9-2.4); AST(SGOT) 16 U/L (15-37); Alanine Aminotransfer ALT/SGPT 30 U/L (13-56); Albumin, Serum 3.8 g/dL (3.2-5.0); Alkaline Phosphatase 130 U/L (45-117); Anion Gap 7 (5-15); BUN 11 mg/dL (7-18); BUN/Creat Ratio 13.2 RATIO (10-20); Calcium,Total 9.2 mg/dL (8.5-10.1); Chloride 107 mmol/L (98-107); Creatinine, Serum 0.83 mg/dL (0.55-1.02); EST Glomerular Filtration Rate 72 mL/min (>60); Est Glom Filt Rate - Afr Amer 88 mL/min (>60); Estimated Creatinine Clearance 54.41 ml/min; Globulin 3.4 g/dL (2.2-4.2); Glucose 106 mg/dL (74-106); Lipase 181 U/L (73-393); Potassium 3.5 mmol/L (3.5-5.1); Protein, Total 7.2 g/dL (6.4-8.2); Sodium Level 141 mmol/L (136-145)
[2020-05-13 14:29] LABS: Squamous Epithelial Cells - UA 0-5 SEEN /hpf (5-10); White Blood Cells 0-5 SEEN /hpf (0-5)
--- NOTE | 2020-05-13 15:26 | ED.DCSUM_ITS ---
- ER Visit Summary Date of Service: 05/13/20 Chief Complaint: Abdominal pain History of Present Illness: The patient is a [address] Sage. She reports that she has right-sided abdominal pain that began approximately 16 hours ago. Is an aching pain instead of 10 worst 5-10 currently. Is worsened by movement. States that she feels bloated. Is relieved by remaining still. She denies any nausea, vomiting, or diarrhea. However, she reports that she had 3 bowel movements today and that is unusual for her. She denies any blood in her stools or black tarry stools. No dysuria or frequency. Patient has never had anything like this before. She denies any history of fatty food intolerance. Physical Examination: Vitals: Stable. Afebrile. General: Well-nourished and well-developed. Head: Normocephalic atraumatic. Neck: Supple, no lymphadenopathy. No JVD. Nontender. Cardiovascular: Regular rate and rhythm. No murmurs. Respiratory: No respiratory distress. Clear to auscultation bilaterally. Abdominal: Soft, moderate right upper quadrant tenderness to palpation and mild epigastric and left upper quadrant tenderness to palpation, nondistended, normal bowel sounds. No guarding, rebound, or peritoneal signs. Back: Nontender. No CVA tenderness. Extremities: Nontender, no edema. Skin: Normal color, no rash. Neurologic: Alert and oriented ?3. Cranial nerves II through XII are intact. Normal strength and sensation. Psych: Normal affect. Test Results: CBC is normal. Chem-7 is normal. LFTs are's are remarkable for an alk phos of 130. Lipase is normal. UA is normal. Clinical Impression(s) from Imaging Studies Abdomen/Pelvis CT 05/13/20 13:50 IMPRESSION: No acute findings. No change since prior. Electronically Signed: Kim Emmanuel MD at 15:13 EST Tel , Service support , Emergency Department Course and Treatment: Patient refused pain or nausea medications. She is resting comfortably. She is had a right upper quadrant sound and HIDA scan 2017 that were negative. She feels well and would like to go home. Treatment Plan: Patient be discharged instructions follow-up with her primary care physician in 2 days for another exam. She discharged prescription for [place] and Zofran. Return to the emergency department for any worsening symptoms. Disposition: To home in improved and stable condition. Impression: 1 1. Abdominal pain, uncertain cause. This note was generated with [employer] dictation software. It may contain incorrect words, spelling, and punctuation that were not noted in review of the chart prior to signing ED Disposition - Plan for ED Patient: Instructions: ED Abdominal Pain Unkn Cause Fem Prescriptions: Hydrocodone Bitart/Apap 5-325 [[place] 5MG-325MG] 1 tablet PO Q4H PRN PRN 2 Days #10 tablet PRN Reason: Pain Ondansetron [Zofran Odt] 4 mg PO Q8H PRN PRN #10 tablet PRN Reason: Nausea Referrals: Sana Sage MD [Primary Care Provider] - 2 Days
[2020-05-13 15:39] VITALS: BP 153/77; PULSE 80; RESP 16; O2SAT 99
--- NOTE | 2020-05-13 15:40 | ED.RN ---
IV DC'ED, CATHETER INTACT, SMALL GAUZE DRESSING PLACED. DISCHARGE INSTRUCTIONS GIVEN TO AND REVIEWED WITH PATIENT, PATIENT DENIES QUESTIONS OR CONCERNS AND VOICES UNDERSTANDING OF DISCHARGE INSTRUCTIONS. PT AMBULATES OUT OF ROOM WITHOUT DIFFICULTY.
== END 2020-05-13 15:40 | disposition home or self-care (01) ==
PROVIDERS: Emergency Provider Emergency Medicine; PCP Internal Medicine
DX: R10.9 Unspecified abdominal pain (principal); M54.9 Dorsalgia, unspecified
CPT/HCPCS: 74177; 80053; 81001; 83690; 85025; 96360; 99283; J7030; Q9967; A4216

== ENCOUNTER → 2021-02-02 | Outpatient (CLI) | payer MEDICARE, BC, SELFPAY | END | disposition home or self-care (01) | LOC: LABSPEC 13:37 | PROVIDERS: PCP Internal Medicine; Referring Provider Physician Assistant; Visit Provider Physician Assistant | DX: U07.1 COVID-19 (principal) | CPT/HCPCS: 87635; U0005; U0003 ==

== ENCOUNTER 2021-02-05 11:28 | Outpatient (CLI) | payer MEDICARE, BC, SELFPAY ==
[2021-02-05 12:03] VITALS: BP 140/72; PULSE 78; RESP 16; TEMP 37; O2SAT 98; BMI 30.2
[2021-02-05] MEDS: 0.9% Saline Lock 10 ML Syringe IV (12:07)
[2021-02-05 12:45] VITALS: BP 140/68; PULSE 76; RESP 16; TEMP 36.9; O2SAT 97
[2021-02-05 13:37] VITALS: BP 131/67; PULSE 70; RESP 16; TEMP 37.1; O2SAT 99
[2021-02-05 13:45] VITALS: BP 131/67; PULSE 70; RESP 16; TEMP 37.1; O2SAT 99
== END 2021-02-05 13:45 | disposition home or self-care (01) ==
LOC: MS3OUT 11:28 → MS3 11:29
PROVIDERS: PCP Internal Medicine; Referring Provider Nurse Practitioner Adult Health; Visit Provider Nurse Practitioner Adult Health
DX: Z23 Encounter for immunization (principal); U07.1 COVID-19
CPT/HCPCS: J7050; M0245; Q0245; A4216

== ENCOUNTER 2021-03-29 14:30 | Outpatient (CLI) | payer MEDICARE, BC, SELFPAY ==
--- NOTE | 2021-03-29 14:33 | BI_ITS ---
MAMMOGRAPHY - BILATERAL SCREENING REASON FOR EXAM: Female, 66 years old. Routine annual screening examination. PERTINENT HISTORY: Aunts with breast cancer. TECHNIQUE: Digital bilateral breast khari (3D mammographic acquisition) in the CC and MLO projections. 2-D mediolateral oblique (MLO) and craniocaudad (CC) views of both breasts were obtained. CAD: Full Field Digital Mammography with Computer Added Detection was performed. COMPARISON: Comparison is made with prior study of 01/27/2020 and 01/19/2019. FINDINGS: Breast Composition: There are scattered areas of fibroglandular density. There are no dominant masses or suspicious calcifications. Stable small benign-appearing bilateral axillary lymph nodes. No other significant abnormalities are identified. There has been no significant change since the prior study. BI/SCRN MAMM (CAD)W/KHARI BILAT IMPRESSION: Stable bilateral screening mammogram. Yearly follow-up mammogram recommended. (A) ASSESSMENT CATEGORY: BIRADS Category 2: Benign. A letter regarding these results will be sent to the patient by the facility within 30 days. Approximately 10% of breast cancers are not detected by mammography. A normal mammogram should not delay biopsy of a clinically suspicious abnormality. [id number] Electronically Signed: Cooper Thomas MD at 15:12 EST , Service support ,
== END 2021-03-29 23:59 | disposition short-term general hospital (02) ==
LOC: OPBI 14:31
PROVIDERS: PCP Internal Medicine; Referring Provider Internal Medicine; Visit Provider Internal Medicine
DX: Z12.31 Encounter for screening mammogram for malignant neoplasm of breast (principal)
CPT/HCPCS: 77063; 77067

== ENCOUNTER → 2021-11-07 | Outpatient (CLI) | payer MEDICARE, BC, SELFPAY ==
[2021-11-07 10:21] LABS: Absolute Lymphocyte Count 1.97 X10^3/uL (0.83-4.51); Absolute Neutrophil Count 2.8 X10^3/uL (2.0-7.7); Basophil# 0.04 X10^3/uL; Basophil% 0.8 % (0-1); Eosinophil# 0.19 X10^3/uL; Eosinophils% 3.6 % (0-5); Hematocrit 38.3 % (37-47); Hemoglobin 13.2 g/dL (12.0-15.0); Lymphocyte # 1.97 X10^3/ul (0.83-4.51); Lymphocyte % 37.2 % (19-41); Mean Corp Hgb Conc 34.5 g/dL (32-36); Mean Corpuscular Hgb 30.8 pg (27.0-32.0); Mean Corpuscular Volume 89.3 fL (81-99); Mean Platelet Vol. 9.6 fl (6.2-12.0); Monocyte# 0.25 X10^3/uL; Monocyte% 4.7 % (0-10); NRBC Flagged by Analyzer 0 % (0-5); Neutrophil # 2.83 X10^3/uL (2.7-7.7); Neutrophil % 53.5 % (47-70); Platelet Count 290 K/mm3 (150-450); RBC Distribution Width CV 13.2 % (11.6-14.6); RBC Distribution Width SD 43.2 fl (35.1-43.9); Red Blood Count 4.29 M/mm3 (4.2-5.4); White Blood Count 5.3 K/mm3 (4.4-11.0)
[2021-11-07 10:47] LABS: Hemoglobin A1c 5.4 % (3.8-5.6)
[2021-11-07 10:54] LABS: AST(SGOT) 16 U/L (15-37); Alanine Aminotransfer ALT/SGPT 25 U/L (13-56); Albumin, Serum 3.5 g/dL (3.2-5.0); Alkaline Phosphatase 109 U/L (45-117); Anion Gap 6 (5-15); BUN 12 mg/dL (7-18); BUN/Creat Ratio 14.4 RATIO (10-20); Calcium,Total 9.1 mg/dL (8.5-10.1); Chloride 107 mmol/L (98-107); Cholesterol 294 mg/dL (200); Creatinine, Serum 0.83 mg/dL (0.55-1.02); EST Glomerular Filtration Rate 72 mL/min (>60); Est Glom Filt Rate - Afr Amer 88 mL/min (>60); Globulin 3.5 g/dL (2.2-4.2); Glucose 87 mg/dL (74-106); High Density Lipoprotein 60 mg/dL; Potassium 3.6 mmol/L (3.5-5.1); Sodium Level 141 mmol/L (136-145); Triglycerides 192 mg/dL; Very Low Density Lipoprotein 38 mg/dL (5-40)
== END | disposition home or self-care (01) ==
LOC: BIMLAB 08:09
PROVIDERS: PCP Internal Medicine; Referring Provider Internal Medicine; Visit Provider Internal Medicine
DX: E78.5 Hyperlipidemia, unspecified (principal); R73.03 Prediabetes
CPT/HCPCS: 36415; 80053; 80061; 83036; 85025

== ENCOUNTER 2022-02-11 08:11 | Outpatient (CLI) | payer MEDICARE, BC, SELFPAY ==
[2022-02-11 13:23] LABS: Cholesterol 260 mg/dL (200); High Density Lipoprotein 66 mg/dL; Triglycerides 153 mg/dL; Very Low Density Lipoprotein 31 mg/dL (5-40)
== END 2022-02-11 23:59 | disposition home or self-care (01) ==
LOC: BIMLAB 08:12
PROVIDERS: PCP Internal Medicine; Referring Provider Internal Medicine; Visit Provider Internal Medicine
DX: E78.5 Hyperlipidemia, unspecified (principal)
CPT/HCPCS: 36415; 80061

== ENCOUNTER → 2022-04-01 | Outpatient (CLI) | payer MEDICARE, BC, SELFPAY ==
--- NOTE | 2022-04-01 12:54 | BI_ITS ---
MAMMOGRAPHY - BILATERAL SCREENING REASON FOR EXAM: Female, 67 years old. Routine annual screening examination. PERTINENT HISTORY: Aunts with breast cancer. TECHNIQUE: Digital bilateral breast khari (3D mammographic acquisition) in the CC and MLO projections. 2-D mediolateral oblique (MLO) and craniocaudad (CC) views of both breasts were obtained. CAD: Full Field Digital Mammography with Computer Added Detection was performed. COMPARISON: Comparison is made with prior study dated 03/29/2021 and 01/27/2020. FINDINGS: Breast Composition: There are scattered areas of fibroglandular density. There are no dominant masses or suspicious calcifications. Stable small benign-appearing bilateral axillary lymph. No other significant abnormalities are identified. There has been no significant change since the prior study. BI/SCRN MAMM (CAD)W/KHARI BILAT IMPRESSION: Stable bilateral screening mammogram. Yearly follow-up mammogram recommended. (A) ASSESSMENT CATEGORY: BIRADS Category 2: Benign. A letter regarding these results will be sent to the patient by the facility within 30 days. Approximately 10% of breast cancers are not detected by mammography. A normal mammogram should not delay biopsy of a clinically suspicious abnormality. [id number] Electronically Signed: Cooper Thomas MD at 13:42 EST ,
== END | disposition home or self-care (01) ==
LOC: OPBI 12:52
PROVIDERS: PCP Internal Medicine; Visit Provider Internal Medicine
DX: Z12.31 Encounter for screening mammogram for malignant neoplasm of breast (principal); Z80.3 Family history of malignant neoplasm of breast
CPT/HCPCS: 77063; 77067

== ENCOUNTER → 2022-06-19 | Outpatient (CLI) | payer MEDICARE, BC, SELFPAY ==
[2022-06-19 12:54] LABS: ALB/GLOB Ratio 1.2 RATIO (0.9-2.4); AST(SGOT) 19 U/L (15-37); Alanine Aminotransfer ALT/SGPT 33 U/L (13-56); Albumin, Serum 3.6 g/dL (3.2-5.0); Alkaline Phosphatase 101 U/L (45-117); Anion Gap 4 (5-15); BUN 12 mg/dL (7-18); BUN/Creat Ratio 16.6 RATIO (10-20); Calcium,Total 9.3 mg/dL (8.5-10.1); Chloride 108 mmol/L (98-107); Cholesterol 258 mg/dL (200); Creatinine, Serum 0.72 mg/dL (0.55-1.02); EST Glomerular Filtration Rate 85 mL/min (>60); Est Glom Filt Rate - Afr Amer 102 mL/min (>60); Glucose 83 mg/dL (74-106); High Density Lipoprotein 73 mg/dL; Potassium 3.6 mmol/L (3.5-5.1); Protein, Total 6.6 g/dL (6.4-8.2); Sodium Level 141 mmol/L (136-145); Triglycerides 85 mg/dL; Very Low Density Lipoprotein 17 mg/dL (5-40)
== END | disposition home or self-care (01) ==
LOC: BIMLAB 08:04
PROVIDERS: PCP Internal Medicine; Visit Provider Internal Medicine
DX: E78.5 Hyperlipidemia, unspecified (principal)
CPT/HCPCS: 36415; 80053; 80061

== ENCOUNTER → 2022-07-18 | Outpatient (CLI) | payer MEDICARE, BC, SELFPAY ==
--- NOTE | 2022-07-18 14:18 | BI_ITS ---
MAMMOGRAPHY - UNILATERAL DIAGNOSTIC: RIGHT BREAST REASON FOR EXAM: Female, 67 years old. Right nipple inversion. PERTINENT HISTORY: Extreme weight loss. Right nipple inversion. TECHNIQUE: Digital unilateral breast jose (3D mammographic acquisition) in the CC and MLO projections. 2-D mediolateral oblique (MLO) and craniocaudad (CC) views of the right breast were obtained. CAD: Full Field Digital Mammography with Computer Added Detection was performed. COMPARISON: Comparison is made with prior mammogram dated September 29, 2022. FINDINGS: Breast Composition: There are scattered areas of fibroglandular density. There are no dominant masses or suspicious calcifications. There is evidence of nipple inversion on the right side. No mass lesion is seen. Correlation with ultrasound is recommended. No other significant abnormalities are identified. BI/DIAG MAMM W/CAD, UNILAT IMPRESSION: Inversion of the right nipple as compared to prior study. Correlation with ultrasound is recommended. ASSESSMENT CATEGORY: BIRADS Category 0: Incomplete. Need additional imaging evaluation. A letter regarding these results will be sent to the patient by the facility within 30 days. Approximately 10% of breast cancers are not detected by mammography. A normal mammogram should not delay biopsy of a clinically suspicious abnormality. Electronically Signed: Cooper Thomas MD at 15:32 EDT ,
--- NOTE | 2022-07-18 14:18 | US_ITS ---
STUDY: ULTRASOUND BREAST - RIGHT REASON FOR EXAM: Female, 67 years old. Right nipple inversion. TECHNIQUE: Axial and longitudinal images of the RIGHT breast were performed with a high resolution ultrasound transducer. # OF IMAGES: 16 COMPARISON: Comparison is made with prior mammogram dated July 18, 2022. FINDINGS: RIGHT Breast: There is evidence of nipple inversion. No underlying mass lesion is seen. US/Breast Limited Unilateral IMPRESSION: Nipple inversion. No underlying mass lesion is seen. ASSESSMENT CATEGORY: BIRADS Category 2: Benign. A letter regarding these results will be sent to the patient by the facility within 30 days. Electronically Signed: Cooper Thomas MD at 10:51 EDT ,
== END | disposition home or self-care (01) ==
LOC: OPBI 14:16
PROVIDERS: PCP Internal Medicine; Referring Provider Nurse Practitioner Women's Health; Visit Provider Nurse Practitioner Women's Health
DX: N64.59 Other signs and symptoms in breast (principal)
CPT/HCPCS: 76642; 77065

== ENCOUNTER → 2023-01-06 | Outpatient (CLI) | payer MEDICARE, BC, SELFPAY ==
[2023-01-06 12:16] LABS: Absolute Lymphocyte Count 1.99 X10^3/uL (0.83-4.51); Absolute Neutrophil Count 2.2 X10^3/uL (2.0-7.7); Basophil# 0.05 X10^3/uL; Basophil% 1.1 % (0-1); Eosinophil# 0.17 X10^3/uL; Eosinophils% 3.7 % (0-5); Lymphocyte # 1.99 X10^3/ul (0.83-4.51); Mean Corp Hgb Conc 32.5 g/dL (32-36); Mean Corpuscular Hgb 30.5 pg (27.0-32.0); Mean Corpuscular Volume 93.9 fL (81-99); Mean Platelet Vol. 10.2 fl (6.2-12.0); Monocyte# 0.26 X10^3/uL; Monocyte% 5.6 % (0-10); NRBC Flagged by Analyzer 0 % (0-5); Neutrophil # 2.15 X10^3/uL (2.7-7.7); Neutrophil % 46.4 % (47-70); Platelet Count 251 K/mm3 (150-450); RBC Distribution Width CV 12.5 % (11.6-14.6); RBC Distribution Width SD 43.2 fl (35.1-43.9); Red Blood Count 4.26 M/mm3 (4.2-5.4); White Blood Count 4.6 K/mm3 (4.4-11.0)
[2023-01-06 12:33] LABS: ALB/GLOB Ratio 1.2 RATIO (0.9-2.4); AST(SGOT) 22 U/L (15-37); Alanine Aminotransfer ALT/SGPT 42 U/L (13-56); Albumin, Serum 3.8 g/dL (3.2-5.0); Alkaline Phosphatase 100 U/L (45-117); Anion Gap 6 (5-15); BUN 16 mg/dL (7-18); BUN/Creat Ratio 21.9 RATIO (10-20); Calcium,Total 9.5 mg/dL (8.5-10.1); Chloride 108 mmol/L (98-107); Cholesterol 262 mg/dL (200); Creatinine, Serum 0.73 mg/dL (0.55-1.02); EST Glomerular Filtration Rate 84 mL/min (>60); Est Glom Filt Rate - Afr Amer 101 mL/min (>60); Globulin 3.2 g/dL (2.2-4.2); Glucose 85 mg/dL (74-106); High Density Lipoprotein 90 mg/dL; Potassium 3.6 mmol/L (3.5-5.1); Sodium Level 142 mmol/L (136-145); Triglycerides 87 mg/dL; Very Low Density Lipoprotein 17 mg/dL (5-40)
[2023-01-06 12:35] LABS: Vitamin D,25 Hydroxy 78.9 ng/mL
== END | disposition home or self-care (01) ==
LOC: BIMLAB 08:03
PROVIDERS: PCP Internal Medicine; Referring Provider Internal Medicine; Visit Provider Internal Medicine
DX: R73.03 Prediabetes (principal); M85.80 Other specified disorders of bone density and structure, unspecified site; I10 Essential (primary) hypertension; E78.5 Hyperlipidemia, unspecified
CPT/HCPCS: 36415; 80053; 80061; 82306; 83036; 85025

== ENCOUNTER → 2023-04-08 | Outpatient (CLI) | payer MEDICARE, BC, SELFPAY ==
--- NOTE | 2023-04-08 13:03 | BI_ITS ---
MAMMOGRAPHY - BILATERAL SCREENING REASON FOR EXAM: Female, 68 years old. Routine annual screening examination. PERTINENT HISTORY: Aunts with breast cancer. TECHNIQUE: Digital bilateral breast khari (3D mammographic acquisition) in the CC and MLO projections. 2-D mediolateral oblique (MLO) and craniocaudad (CC) views of both breasts were obtained. CAD: Full Field Digital Mammography with Computer Added Detection was performed. COMPARISON: Comparison is made with prior study dated April 01, 2022 and March 29, 2021. FINDINGS: Breast Composition: There are scattered areas of fibroglandular density. There are no dominant masses or suspicious calcifications. Stable benign-appearing lymph nodes in the upper outer quadrant of the left breast. No other significant abnormalities are identified. There has been no significant change since the prior study. BI/SCRN MAMM (CAD)W/KHARI BILAT IMPRESSION: Stable bilateral screening mammogram. Yearly follow-up mammogram recommended. (A) ASSESSMENT CATEGORY: BIRADS Category 2: Benign. A letter regarding these results will be sent to the patient by the facility within 30 days. Approximately 10% of breast cancers are not detected by mammography. A normal mammogram should not delay biopsy of a clinically suspicious abnormality. [id number] Electronically Signed: Cooper Thomas MD at 13:04 EST ,
== END | disposition home or self-care (01) ==
LOC: OPBI 13:03
PROVIDERS: PCP Internal Medicine; Referring Provider Nurse Practitioner Women's Health; Visit Provider Nurse Practitioner Women's Health
DX: Z12.31 Encounter for screening mammogram for malignant neoplasm of breast (principal); Z80.3 Family history of malignant neoplasm of breast
CPT/HCPCS: 77063; 77067

== ENCOUNTER → 2024-04-09 | Outpatient (CLI) | payer MEDICARE, SELFPAY ==
--- NOTE | 2024-04-09 11:51 | BI_ITS ---
MAMMOGRAPHY - BILATERAL SCREENING REASON FOR EXAM: Female, 69 years old. Routine annual screening examination. PERTINENT HISTORY: Aunts with breast cancer. TECHNIQUE: Digital bilateral breast khari (3D mammographic acquisition) in the CC and MLO projections. 2-D mediolateral oblique (MLO) and craniocaudad (CC) views of both breasts were obtained. CAD: Full Field Digital Mammography with Computer Added Detection was performed. COMPARISON: Comparison is made with prior study dated April 08, 2023 and July 18, 2022. FINDINGS: Breast Composition: There are scattered areas of fibroglandular density. There are no dominant masses or suspicious calcifications. No other significant abnormalities are identified. There has been no significant change since the prior study. BI/SCRN MAMM (CAD)W/KHARI BILAT IMPRESSION: Stable bilateral screening mammogram. Yearly follow-up mammogram recommended. (A) ASSESSMENT CATEGORY: BIRADS Category 1: Negative. A letter regarding these results will be sent to the patient by the facility within 30 days. Approximately 10% of breast cancers are not detected by mammography. A normal mammogram should not delay biopsy of a clinically suspicious abnormality. [id number] Electronically Signed: Cooper Thomas MD at 13:26 EST ,
== END | disposition home or self-care (01) ==
LOC: OPBI 11:48
PROVIDERS: PCP Internal Medicine; Referring Provider Nurse Practitioner Women's Health; Visit Provider Nurse Practitioner Women's Health
DX: Z12.31 Encounter for screening mammogram for malignant neoplasm of breast (principal); Z80.3 Family history of malignant neoplasm of breast
CPT/HCPCS: 77063; 77067

== ENCOUNTER 2024-10-25 11:54 | Emergency (ER) | payer MEDICARE, SELFPAY ==
[2024-10-25 11:54] VITALS: BP 162/84; PULSE 107; RESP 14; TEMP 36.2; O2SAT 98; BMI 24.3
--- NOTE | 2024-10-25 12:21 | EDS_ITS ---
HPI History of Present Illness Chief Complaint: Constipation Detail of Chief Complaint: Fecal impaction no bowel movement since Friday Informant: patient Onset/Context/Timing Onset: Days Context: Sudden Onset Timing: Continuous Quality: Unable to have a bowel movement Location: Lower GI Current Severity: Mild Maximum Severity: Moderate Worsened by: Nothing for patient Relieved by: Nothing Associated Symptoms Associated Symptoms: Patient was on the commode and strained for 30 minutes. Her legs became nu Narrative Narrative: Patient 69-year-old woman with chronic history of obstipation. Patient presents because of feeling bloated, distended with no bowel movement since Friday. She states last evening she drank 10 ounces of mag citrate and had 1 cap of MiraLAX with no results. She states this normally works. She states she has been eating vegetables and fruit. She has been drinking plenty of fluids. She has never had abdominal surgery. She denies nausea or vomiting. She is fluctuating. She has no other complaints. Patient got concerned because she strained on the commode for 30 minutes. Her legs began to tremor and her legs were numb. The leg numbness did resolve. Prior similar symptoms: Yes Recent Illness/Hospitalization: No PFSH PFSH Medical History Impacted cerumen, bilateral FH: colon cancer in first degree relative <60 years old COVID-19 Borderline type 2 diabetes mellitus Hyperlipidemia Hypertension GERD (gastroesophageal reflux disease) IBS (irritable bowel syndrome) Hemorrhoids Acid reflux Constipation Home Medications ?Medication ?Instructions ?Recorded ?Last Taken ?Type NK 09/17/23 Unknown History selenium sulfide 2.5 % lotion See Rx Instructions topi norm 09/01/24 Unknown Rx .COMPLEX #120 mL Allergy/AdvReac Type Severity Reaction Status Date / Time amoxicillin Allergy Unknown Hives Verified 10/25/24 11:54 clindamycin AdvReac Diarrhea Verified 10/25/24 11:54 Penicillins (PCN) AdvReac Hives Verified 10/25/24 11:54 Family History Aunt Breast cancer Aunt Ovarian cancer Mother Colon cancer Sister Ovarian cancer Surgical History History of colonoscopy (~2020) Hx of colonoscopy Hx of tonsillectomy Social History Smoking Status: Former smoker quit date: 03/17/75 Tobacco: How many years used: 6 how long ago did patient quit smokin alcohol intake: current alcohol intake frequency: holidays/special occasions only substance use type: does not use caffeine: Yes frequency: does not exercise seatbelt use: always do you feel safe at home: Yes ROS ROS ED Constitutional Constitutional ED: Denies chills, fever(s), subjective or sweats Eyes Eyes: Denies blurry vision or change in vision ENT ENT ED: Denies ear pain, rhinorrhea or sore throat Cardiovascular Cardiovascular: Denies chest pain or palpitations Respiratory/Chest Respiratory/Chest: Denies cough, dyspnea or dyspnea on exertion Gastrointestinal Gastrointestinal: Reports abdominal pain and constipation; Denies diarrhea, melena, nausea or vomiting Musculoskeletal Musculoskeletal: Denies back pain Neurologic Neurologic: Denies paresthesias or weakness Hematologic/Lymphatic Hematologic/Lymphatic: Reports systems reviewed and no addt'l complaints, except as documented EXAM Physical Exam Narrative Exam Narrative: Patient was reading her bronchodilators the room. She appears slightly uncomfortable. Const Vital Signs: 10/25/24 11:54 Temperature 97.1 F L Temperature Source Temporal Pulse Rate 107 H Respiratory Rate 14 Blood Pressure 162/84 H Blood Pressure Mean 110 Pulse Ox 98 Oxygen Delivery Method Room Air Positive well nourished and well developed General Appearance ED: well developed and NAD HEENT Reports dry mucous membranes HEENT Narrative: Head is atraumatic normocephalic. Ears normal. Nares patent. Mouth ED: Yes dry mucous membranes Mouth: dry mucous membranes Eyes PERRL and EOMs intact bilaterally General Eye ED: Negative for scleral icterus Resp normal respiratory effort and clear to auscultation bilaterally Cardio regular rate, regular rhythm, S1 normal heart sound, S2 normal heart sound and no murmurs GI no masses; Negative for hepatosplenomegaly GI Narrative: Abdomen is tympanitic to percussion. Bowel sounds are slightly increased. There is discomfort with palpation. There is no guarding or peritoneal findings. On rectal exam she is impacted. There is no fissures, fistulas or hemorrhoids noted. Inspection: abdominal distention Back/Spine no CVA tenderness Extremity normal to inspection Neuro oriented x3 and CN's II-XII intact bilaterally Sensorium / Orientation: alert Skin no rashes or lesions noted, no wounds and skin turgor normal MDM MDM MDM Narrative Medical decision making narrative: Patient has fecal impaction. Her vital signs were noted for hypertension and tachycardia. She apparently does not have a history of hypertension. Since patient has fecal impaction she was digitally disimpacted by me with nurse as packaging machine operator. There was a significant mount of stool that was removed. History & Record Review Additional record(s) reviewed:: Prior outpatient record (Seen for cerumen impaction in December and September 2023. March 2023 was seen by Kenna Figueroa for atrophic vaginitis. There is also a office visit internal medicine for type 2 diabetes.) and Prior ED visit (Most recent ER visit was April 2020. She was seen by Dr. Don at that time. She was seen for abdominal pain.) Discharge Plan Triage Chief Complaint: Constipation ED Provider: Case Melissa Dx/Rx/DC Orders Clinical Impression: Impacted stool in rectum, Hypertension, Hyperlipidemia, Borderline type 2 diabetes mellitus Instructions: ED Fecal Impaction, Treated Prescriptions: No Action NK selenium sulfide 2.5 % lotion See Rx Instructions TOPICAL .COMPLEX Qty: 120 0RF Rx Instructions: Apply daily and leave on for 20 min for 5-7 days topical; Apply daily and leave on for 20 min for 5-7 days Primary Care Provider: Sana Sage Referrals: Sana Sage MD [Primary Care Provider] - 1 Week if not improving Activity Restrictions/Additional Instructions: Recommend 1 cap of MiraLAX daily for the next week. Print Language: Mexican Disposition Disposition: Home, Self Care
[2024-10-25 12:51] VITALS: BP 138/77; PULSE 78; RESP 14; TEMP 36.5; O2SAT 98
== END 2024-10-25 12:53 | disposition home or self-care (01) ==
PROVIDERS: Emergency Provider Emergency Medicine; PCP Internal Medicine; Visit Provider Emergency Medicine
DX: K56.49 Other impaction of intestine (principal); I10 Essential (primary) hypertension; R73.03 Prediabetes; Z87.891 Personal history of nicotine dependence; Z86.16 Personal history of COVID-19
CPT/HCPCS: 99282